=== PATIENT | female | born 1965 | race Caucasian/White ===

== ENCOUNTER 2016-09-29 20:58 | Inpatient (IN) | payer OTHER ==
[~2016-09-29] VITALS: Ht 157.5 cm; Wt 70.0 kg
[2016-09-29] MEDS ORDERED: ONDANSETRON 4 MG INJ IV STA (22:00)
[2016-09-29] MEDS ORDERED: SOD CHLORIDE 0.9% 1,000 ML IV STA (22:00)
[2016-09-29] MEDS ORDERED: morphine 4 MG/ML VIAL IV STA (22:00)
[2016-09-29 22:37] LABS: ADD UMIC YES; URINE BILIRUBIN (Dip) NEGATIVE (NEGATIVE); URINE BLOOD (Dip) TRACE (NEGATIVE); URINE GLUCOSE (Dip) NEGATIVE (NEGATIVE); URINE KETONES (Dip) NEGATIVE (NEGATIVE); URINE LEUKOCYTE ESTERASE (Dip) NEGATIVE (NEGATIVE); URINE NITRITE (Dip) NEGATIVE (NEGATIVE); URINE TOTAL PROTEIN (Dip) TRACE (NEGATIVE); URINE UROBILINOGEN (Dip) 0.2 E.U./dL (0.1-1.0)
[2016-09-29 22:39] LABS: BASOPHILS % 0.4 % (0.0-2.0); EOSINOPHILS # 0.1 10^3/ul (0.0-0.5); EOSINOPHILS % 1.5 % (0.0-7.0); HEMATOCRIT 38.5 % (37.0-47.0); HEMOGLOBIN 13.4 g/dl (12.0-16.0); MEAN CORPUSCULAR HEMOGLOBIN 30.4 pg (29.0-33.0); MEAN CORPUSCULAR HGB CONC 34.9 g/dl (32.0-37.0); MEAN CORPUSCULAR VOLUME 87.2 fl (82.0-101.0); MEAN PLATELET VOLUME 8.2 fl (7.4-10.4); MONOCYTE # 0.5 10^3/ul (0.3-0.9); MONOCYTES % 5.4 % (0.0-11.0); NEUTROPHIL # 7.7 10^3/ul (1.6-7.5); NEUTROPHILS % 81.7 % (39.0-77.0); PLATELET COUNT 206 10^3/UL (140-440); RED BLOOD COUNT 4.42 10^6/ul (4.20-5.40); RED CELL DISTRIBUTION WIDTH 12.2 % (11.5-14.5); UNCORRECTED WBC 9.4 10^3/ul (4.8-10.8); WHITE BLOOD COUNT 9.4 10^3/ul (4.8-10.8)
[2016-09-29 22:40] LABS: URINE COLOR YELLOW (YELLOW)
[2016-09-29 22:41] LABS: CONDITION 1
[2016-09-29 22:46] LABS: BACTERIA,URINE MODERATE; MUCUS,URINE MODERATE; SQUAMOUS EPITHELIAL CELL,UR MODERATE
[2016-09-29 22:46] LABS: ALBUMIN 4.5 g/dl (3.3-4.9)
[2016-09-29 22:47] LABS: POTASSIUM 4.2 mmol/L (3.5-5.1)
[2016-09-29 22:48] LABS: CREATININE 0.65 mg/dl (0.44-1.00)
[2016-09-29 22:49] LABS: ALBUMIN/GLOBULIN RATIO 1.25; BILIRUBIN,INDIRECT 0.7 mg/dl (0-1.1); BILIRUBIN,TOTAL 0.7 mg/dl (0.2-1.3); CALCIUM 9.6 mg/dl (8.4-10.2); TOTAL PROTEIN 8.1 g/dl (6.1-8.1)
--- NOTE | 2016-09-29 23:12 | RADRPT ---
PROCEDURE: CT Abdomen and Pelvis without contrast CLINICAL INDICATION: Abdominal pain TECHNIQUE: Transaxial images were obtained through the abdomen and pelvis on a multi-slice scanner without the intravenous contrast administration. no oral contrast had previously been given. Sagitt al and coronal re-formations were subsequently reconstructed. One or more of the following dose reduction techniques were used: - Automated exposure control. - Adjustment of the mA and/or kV according to patient size. - Use of iterative reconstruction technique. Radiation dose: CTDIvol = 9.65 mGy; DLP = 571.55 mGy-cm. COMPARISON: No prior studies are available for comparison. FINDINGS: Lung bases: Mild compressive changes seen at the gravity dependent posterior lung hernandez. Liver: Normal in size and in attenuation. There is no focal lesion. Gallbladder: Surgical flex are seen in the gallbladder fossa. Bile ducts: The common hepatic duct measures 1.5 cm in cross diameter. The common bile duct is dila dale to 0.8 cm through the head of the pancreas. No choledocholith is evident. Pancreas: Appears normal with no mass or inflammation evident. Spleen: Normal in size with no focal lesion. Adrenals: Normal with no mass identified. Kidneys, ureters and bladder: The kidneys are normal in size and there is no mass, pathological calc ification, or hydronephrosis evident. There is no perinephric stranding. The ureters are normal in c aliber and no ureteroliths are identified. The bladder is extrinsically compressed from a complex la rgely cystic mass which is seen at the midline pelvis. Reproductive organs: A complex largely cystic mass is seen at the midline pelvis located superior to the bladder which measures 9.3 x 9.1 x 8.7 cm in diameter. The cystic component measures 5 HU in d ensity. The wall is somewhat thickened and there are septations a solid component with a few puncta te calcifications and septations seen at the superior aspect of this lesion. No separate uterus is identified. Stomach and bowel: The stomach appears unremarkable. There is no evidence of bowel obstruction or i nflammation. Considerable stool is seen within the colon. Appendix: The vermiform appendix is prominent in caliber measuring approximately 7.5 mm but no infla mmatory changes seen in the adjacent fat. Peritoneum: No free intraperitoneal fluid or air is identified. Aorta: Normal in caliber with no aneurysmal dilatation. IVC: Unremarkable. Lymph nodes: No pathologically enlarged nodes are identified. Osseous structures: The osseous elements appear intact. IMPRESSION: 1. There is a complex largely cystic septated lesion seen at the midline pelvis located superior to the bladder measuring 9.3 x 9.1 x 8.7 cm. Superiorly there is a solid component with septations an d a few punctate calcifications noted. This is suspicious for ovarian neoplasm. No separate the ut erus is identified. Historical correlation is indicated. Correlation with sonography may be useful to further evaluate. 2. No adenopathy is identified. 3. There is no free intraperitoneal fluid or air. 4. No focal hepatic lesion is evident. 5. Status post cholecystectomy with dilatation of the common hepatic duct to 1.5 cm and less dilata tion of the common bile duct which measures 0.8 cm to the head of the pancreas. No choledocholith i s evident and the pancreas appears normal. Clinical and laboratory correlation is indicated to excl ude a biliary obstruction. 6. No evidence of bowel obstruction or inflammation. The vermiform appendix is prominent in calibe r measuring 7.5 mm, but no inflammatory changes seen of the adjacent fat. This is of doubtful signi ficance. Physician Juan Date Time Electronically viewed and signed by Physician Juan on 09/29/2016 23:11 /
[2016-09-29] MEDS ORDERED: HYDROmorphONE 1 MG/ML SYG IV STA (23:25)
[2016-09-30] MEDS ORDERED: ONDANSETRON 4 MG INJ IV STA ×2 (00:34→03:08)
--- NOTE | 2016-09-30 00:37 | RADRPT ---
PROCEDURE: Pelvic ultrasound. CLINICAL INDICATION: Pelvic pain TECHNIQUE: Hart scale, color doppler, spectral doppler ultrasound of the pelvis was performed with transabdominal transducers. COMPARISON: CT abdomen pelvis 09/29/2016 FINDINGS: Status post hysterectomy. Enlarged right ovary with solid and predominantly cystic components measuring up to 9.6 x 7.7 x 10.0 cm; blood flow is maintained. Left ovary is not identified. IMPRESSION: Complex cystic mass of the right ovary is concerning for epithelial neoplasm. Concordant with the o bservations of the prior CT scan Left ovary is not identified. RPTAT: PP .Vinny Reyes MD, MD Date Time Electronically viewed and signed by .Vinny Reyes MD, MD on 09/30/2016 00:36 .B/
[2016-09-30] MEDS ORDERED: METOCLOPRAMIDE 10 MG INJ IV ONE (01:00)
[2016-09-30] MEDS ORDERED: HYDROmorphONE 2 MG/ML SYG IV STA (01:09)
[2016-09-30] MEDS ORDERED: DICLOFENAC SODIUM 37.5 MG/ML VIAL IV STA (01:19)
--- NOTE | 2016-09-30 01:25 | CONS ---
Date/Time of Note Date/Time of Note DATE: 09/30/16 TIME: 00:48 Assessment/Plan Assessment/Plan Chief Complaint/Hosp Course LLQ pain Problems: Additional Assessment/Plan 50yo P3 with LLQ pain and N/V in the setting of a large complex R adnexal mass without e/o ovarian torsion at this time. Discussed with pt that given her age and the appearance of the mass, differential dx includes ovarian cancer vs a benign adnexal mass given CT scan does not show evidence of ascites, metastatic disease or alternative source of pathologic origin. Would recommend sending tumor markers- specifically CA-125 and CA-19-9. Pt may need consultation with Gynecologic Oncology pending results. Questions answered to patient's satisfaction at this stage. Consultation Date/Type/Reason Admit Date/Time Date of Consultation: Sep 30, 2016 Type of Consultation: Gynecology Reason for Consultation Pelvic pain with pelvic mass on imaging Referring Provider: PATRICIA ESCOBEDO DO Hx of Present Illness 50yo P3 with hx of total hysterectomy 2yrs ago presents with progressively worsening LLQ pain x1 week and intractable N/V x1d. Pt c/o 10/10 constant pain in LLQ which is worse with walking and moving about. Pt denies radiation or migration of the pain and denies having tried any medications for the pain. Able to tolerate POs yesterday w/o difficulty. Denies fevers/chills, N/V, urinary or bowel sxs. Denies vaginal bleeding or abnormal discharge. Pt states she last saw a Slabber >1yr ago for a pap smear which was wnl. Pt denies hx of abnormal pap smears. 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 Regular monthly menses until hysterectomy. Sexually active with male partner of 3yrs. FHx: Denies family history of cancer. Mother with DM SocHx: Denies tobacco, EtOH or illicit drug use Imaging in ED PROCEDURE: Pelvic ultrasound. CLINICAL INDICATION: Pelvic pain TECHNIQUE: Hart scale, color doppler, spectral doppler ultrasound of the pelvis was performed with transabdominal transducers. COMPARISON: CT abdomen pelvis 09/29/2016 FINDINGS: Status post hysterectomy. Enlarged right ovary with solid and predominantly cystic components measuring up to 9.6 x 7.7 x 10.0 cm; blood flow is maintained. Left ovary is not identified. IMPRESSION: Complex cystic mass of the right ovary is concerning for epithelial neoplasm. Concordant with the observations of the prior CT scan Left ovary is not identified. PROCEDURE: CT Abdomen and Pelvis without contrast CLINICAL INDICATION: Abdominal pain IMPRESSION: 1. There is a complex largely cystic septated lesion seen at the midline pelvis located superior to the bladder measuring 9.3 x 9.1 x 8.7 cm. Superiorly there is a solid component with septations and a few punctate calcifications noted. This is suspicious for ovarian neoplasm. No separate the uterus is identified. Historical correlation is indicated. Correlation with sonography may be useful to further evaluate. 2. No adenopathy is identified. 3. There is no free intraperitoneal fluid or air. 4. No focal hepatic lesion is evident. 5. Status post cholecystectomy with dilatation of the common hepatic duct to 1.5 cm and less dilatation of the common bile duct which measures 0.8 cm to the head of the pancreas. No choledocholith is evident and the pancreas appears normal. Clinical and laboratory correlation is indicated to exclude a biliary obstruction. 6. No evidence of bowel obstruction or inflammation. The vermiform appendix is prominent in caliber measuring 7.5 mm, but no inflammatory changes seen of the adjacent fat. This is of doubtful significance. Social History Smoking Status: Never smoker Exam/Review of Systems Vital Signs Vitals Vital Signs Date Time Temp Pulse Resp B/P Pulse Ox O2 Delivery O2 Flow Rate FiO2 09/29/16 21:01 97.8 90 20 129/90 100 Exam Gen: sitting up in bed, appears moderately distressed secondary to pain and nausea, emesis bag in hand Abd: thin, mod TTP LLQ and midline, no R/R/G, well-healed Pfannenstiel incision Pelvic: normal appearing external genitalia. On BME, cuff intact without defect or nodularity, no cervix palpated, palpable mobile mass in the midline which extends superiorly to 1 finger breadth below umbilicus and to the L pelvis with border midway between midline and ASIS. R border of mass is not well defined. Unable to appreciate the ovaries independent of the large mass Results Result Diagram: 09/29/16220809/29/162208 Results 24 hrs Laboratory Tests Test 09/29/16 22:00 09/29/16 22:09 Urine Bacteria MODERATE Urine Bilirubin NEGATIVE Urine Clarity SLIGHTLY CLOUDY Urine Color YELLOW Urine Glucose NEGATIVE Urine Hemoglobin TRACE Urine Ketones NEGATIVE Urine Leukocyte Esterase NEGATIVE Urine Microscopic RBC 2-5 Urine Microscopic WBC 0-2 Urine Mucus MODERATE Urine Nitrite NEGATIVE Urine Specific [place] >=1.030 H Urine Squamous Epithelial Cells MODERATE Urine Total Protein TRACE Urine Urobilinogen 0.2 E.U./dL Urine pH 5.5 Alanine Aminotransferase (ALT/SGPT) 74 H Albumin 4.5 Albumin/Globulin Ratio 1.25 Alkaline Phosphatase 79 Anion Gap 17 H Aspartate Amino Transf (AST/SGOT) 54 H Basophils # 0.0 Basophils % 0.4 Blood Urea Nitrogen 21 H Calcium Level 9.6 Carbon Dioxide Level 28 Chloride Level 102 Creatinine 0.65 Direct Bilirubin 0.00 Eosinophils # 0.1 Eosinophils % 1.5 Globulin 3.60 H Glucose Level 133 Hematocrit 38.5 Hemoglobin 13.4 Indirect Bilirubin 0.7 Lipase 72 Lymphocytes # 1.0 Lymphocytes % 11.0 L Mean Corpuscular Hemoglobin 30.4 Mean Corpuscular Hemoglobin Concent 34.9 Mean Corpuscular Volume 87.2 Mean Platelet Volume 8.2 Monocytes # 0.5 Monocytes % 5.4 Neutrophils # 7.7 H Neutrophils % 81.7 H Nucleated Red Blood Cells # 0.0 Nucleated Red Blood Cells % 0.0 Platelet Count 206 Potassium Level 4.2 Red Blood Count 4.42 Red Cell Distribution Width 12.2 Sodium Level 143 Total Bilirubin 0.7 Total Protein 8.1 White Blood Count 9.4 Medications Medications Current Medications Metoclopramide HCl (Reglan) 10 mg ONCE ONCE IV ; Start 09/30/16 at 01:00; Stop 09/30/16 at 01:01 JANINA GILLIS MD Sep 30, 2016 00:59
[2016-09-30] MEDS ORDERED: ONDANSETRON 4 MG INJ IV PRN (02:00)
[2016-09-30] MEDS ORDERED: ACETAMINOPHEN 325 MG TAB PO PRN ×2 (02:00→07:00)
--- NOTE | 2016-09-30 02:04 | ERA ---
ER Documentation Chief Complaint Date/Time DATE: 09/30/16 TIME: 01:58 Chief Complaint left sided abd pain x 2 days w/ vomiting HPI This 50-year-old female came in for 2 days of increasingly severe pain in her left pelvic area. She's also had nausea and vomiting. Is been vomiting several times since this morning. Pain is actually been accumulating for a while but was not as severe until 2 days ago. She denies fevers and chills. Denies chest pain. His had no diarrhea or constipation. ROS All systems reviewed and are negative except as per history of present illness. Medications Home Meds No Active Prescriptions or Reported Meds Allergies Allergies: Coded Allergies: No Known Allergy (Unverified , 09/29/16) PMhx/Soc Medical and Surgical Hx: pt denies Medical Hx History of Surgery: Yes ("GALLBLADDER, UTERUS REMOVAL; NECK SURGERY FOR PINCHED NERVE") Anesthesia Reaction: No Hx Neurological Disorder: No Hx Respiratory Disorders: No Hx Cardiac Disorders: No Hx Psychiatric Problems: No Hx Miscellaneous Medical Probl: No Hx Alcohol Use: No Hx Substance Use: No Hx Tobacco Use: No Smoking Status: Never smoker Physical Exam Vitals Vital Signs Date Time Temp Pulse Resp B/P Pulse Ox O2 Delivery O2 Flow Rate FiO2 09/30/16 01:57 89 16 139/76 95 Room Air 09/29/16 21:01 97.8 90 20 129/90 100 Physical Exam Const: [] Moderate distress Head: Atraumatic Eyes: Normal Conjunctiva, EOMI, PRL ENT: Normal External Ears, Nose and Mouth. Neck: Full range of motion..~ No meningismus. Resp: Clear to auscultation bilaterally Cardio: Regular rate and rhythm, no murmurs Abd: Soft, moderate tenderness to palpation in left lower quadrant, pelvic area, no guarding or rebound, palpable mass, non distended. Normal bowel sounds Skin: No petechiae or rashes Back: No midline or flank tenderness Ext: No cyanosis, or edema Neur: Awake and alert and oriented 3, no focal deficits Psych: Normal Mood and Affect Result Diagram: 09/29/16220809/29/162208 Results 24 hrs Laboratory Tests Test 09/29/16 22:00 09/29/16 22:09 Urine Bacteria MODERATE Urine Bilirubin NEGATIVE Urine Clarity SLIGHTLY CLOUDY Urine Color YELLOW Urine Glucose NEGATIVE% Urine Hemoglobin TRACE Urine Ketones NEGATIVE Urine Leukocyte Esterase NEGATIVE Urine Microscopic RBC 2-5/HPF Urine Microscopic WBC 0-2/HPF Urine Mucus MODERATE Urine Nitrite NEGATIVE Urine Specific [place] >=1.030 Urine Squamous Epithelial Cells MODERATE Urine Total Protein TRACE Urine Urobilinogen 0.2 E.U./dL Urine pH 5.5 Alanine Aminotransferase (ALT/SGPT) 74IU/L Albumin 4.5g/dl Albumin/Globulin Ratio 1.25 Alkaline Phosphatase 79IU/L Anion Gap 17 Aspartate Amino Transf (AST/SGOT) 54IU/L Basophils # 0.010^3/ul Basophils % 0.4% Blood Urea Nitrogen 21mg/dl Calcium Level 9.6mg/dl Carbon Dioxide Level 28mmol/L Chloride Level 102mmol/L Creatinine 0.65mg/dl Direct Bilirubin 0.00mg/dl Eosinophils # 0.110^3/ul Eosinophils % 1.5% Globulin 3.60g/dl Glucose Level 133mg/dl Hematocrit 38.5% Hemoglobin 13.4g/dl Indirect Bilirubin 0.7mg/dl Lipase 72U/L Lymphocytes # 1.010^3/ul Lymphocytes % 11.0% Mean Corpuscular Hemoglobin 30.4pg Mean Corpuscular Hemoglobin Concent 34.9g/dl Mean Corpuscular Volume 87.2fl Mean Platelet Volume 8.2fl Monocytes # 0.510^3/ul Monocytes % 5.4% Neutrophils # 7.710^3/ul Neutrophils % 81.7% Nucleated Red Blood Cells # 0.010^3/ul Nucleated Red Blood Cells % 0.0/100WBC Platelet Count 80762^3/UL Potassium Level 4.2mmol/L Red Blood Count 4.4210^6/ul Red Cell Distribution Width 12.2% Sodium Level 143mmol/L Total Bilirubin 0.7mg/dl Total Protein 8.1g/dl White Blood Count 9.410^3/ul Current Medications Medications (Trade) Dose Ordered Sig/Elisa Route PRN Reason Start Time Stop Time Status Last Admin Dose Admin Sodium Chloride (NS) 1,000 ml @ 1,000 mls/hr Q1H STAT IV 09/29/16 22:00 09/29/16 22:59 DC 09/29/16 22:13 Morphine Sulfate (morphine) 4 mg ONCE STAT IV 09/29/16 22:00 09/29/16 22:01 DC 09/29/16 22:13 Ondansetron HCl (Zofran Inj) 4 mg ONCE STAT IV 09/29/16 22:00 09/29/16 22:01 DC 09/29/16 22:13 Hydromorphone HCl (Dilaudid) 1 mg ONCE STAT IV 09/29/16 23:25 09/29/16 23:27 DC 09/29/16 23:44 Metoclopramide HCl (Reglan) 10 mg ONCE ONCE IV 09/30/16 01:00 09/30/16 01:01 DC 09/30/16 00:54 Ondansetron HCl (Zofran Inj) 4 mg ONCE STAT IV 09/30/16 00:34 09/30/16 00:36 DC 09/30/16 00:54 Hydromorphone HCl (Dilaudid) 2 mg ONCE STAT IV 09/30/16 01:09 09/30/16 01:10 DC 09/30/16 01:31 Diclofenac Sodium (Dyloject) 37.5 mg ONCE STAT IV 09/30/16 01:19 09/30/16 01:20 DC 09/30/16 01:31 Ondansetron HCl (Zofran Inj) 4 mg BRIDGE ORDER PRN IV NAUSEA AND/OR VOMITING 09/30/16 02:00 10/01/16 01:59 Acetaminophen (Tylenol Tab) 650 mg ER BRIDGE PRN PO MILD PAIN/FEVER 09/30/16 02:00 10/01/16 01:59 Procedures/MDM 50-year-old female with new diagnosis of left ovarian mass likely neoplastic. She has intractable pain from this. She was initially given a liter of fluid Zofran and 4 mild grams of morphine. This barely touched her pain she was then will given 1 mg of Dilaudid which helped her pain but was very quickly she was then given 2 mg of Dilaudid and IV diclofenac. She vomited several times including will she was being examined by Dr. Clifton, clinical transformation specialist forestry extension specialist who came to the room to see the patient. She was then given Reglan and Zofran. She' s being admitted to the medical surgical floor for intractable nausea vomiting. I spoke with Dr. Ayala he'll be admitting the patient. Dr. Clifton will be on consult. She has ordered cancer tumor markers see a 19 9 and CVA [address] abdomen and pelvis interpretation: Complex cystic/solid mass measuring approximately 10 x 10 x 10 cm. No free fluid, 1.5 cm hepatic duct and common bile duct which is 8 mm. No free air, no obstruction Pelvic ultrasound interpretation: Complex cystic structure in the left pelvic area consistent with possible ovarian neoplasm, left ovarian is not visualized Departure Diagnosis: Primary Impression: Intractable abdominal pain Additional Impressions: Ovarian mass, left Vomiting Dehydration Condition: Stable PATRICIA ESCOBEDO DO Sep 30, 2016 02:04
[2016-09-30 02:55] LABS: CANCER ANTIGEN 19-9 5.7 U/ml (0.0-37.0)
[2016-09-30] MEDS ORDERED: LORAZEPAM 2 MG INJ IV ONE (03:30)
[2016-09-30 04:07] VITALS: TEMP 97.8
[2016-09-30 04:49] VITALS: BP 139/76; PULSE 86; RESP 18
[2016-09-30 04:54] VITALS: Ht 157.5 cm; Wt 70.0 kg
[2016-09-30 08:00] VITALS: BP 138/70; PULSE 88; RESP 18
[2016-09-30 08:11] VITALS: BP 121/69; RESP 17
[2016-09-30] MEDS: D5W-0.45 NACL + KCL 20 MEQ 1,000 ML IV SCH ×2 (09:47→21:23)
[2016-09-30] MEDS: HYDROCODONE/APAP (5/325) TAB PO PRN (09:48)
--- NOTE | 2016-09-30 12:00 | HP ---
DATE OF ADMISSION: 09/30/2016 CHIEF COMPLAINT: Abdominal pain. REASON FOR ADMISSION: Ovarian mass, benign versus malignant. HISTORY OF PRESENT ILLNESS: This is a 50-year-old female who has a past medical history of uterine fibroids and history of section, history of gallstones, status post cholecystectomy, presen dale with a progressively worsening of left lower quadrant pain for the last 1 week and associated wi th intractable nausea and vomiting for the last one day. She was complaining of 10/10 pain. In the emergency room, she had a workup done including a CT abdomen and pelvis, and a pelvic ultrasound wh ich was suspicious for ovarian mass, possible benign versus malignant. She was evaluated by IT ASSOCIATE onc ology, Dr. Clifton, and the patient was recommended to have tumor markers, including CA-125 and CA 19-9. Further evaluation will depend on the patient's further lab results. At the time of my evaluation, she was complaining the left lower quadrant pain associated with some nausea, vomiting. REVIEW OF SYSTEMS: Other 12 point review of systems has been obtained and is negative except what i s mentioned. PAST MEDICAL HISTORY: Notable for uterine fibroids, gallstones. PAST SURGICAL HISTORY: History of cholecystectomy, history of hysterectomy at the age of 48 for sym ptomatic fibroids. FAMILY HISTORY: No family history of ovarian cancers. SOCIAL HISTORY: No smoking, alcohol or recreational drug use. PHYSICAL EXAMINATION: VITAL SIGNS: Temperature 98.5, heart rate 89, respirations 17, blood pressure 121/69, saturation 97 % on room air. GENERAL: Awake, alert, in moderate distress due to pain. HEENT: Normal. Oropharynx clear. NECK: Supple, no JVD, no lymphadenopathy. LUNGS: Clear to auscultation. No crackles, no wheezes. HEART: S1, S2, with regular rhythm, no murmur. ABDOMEN: Soft, nontender to palpation in the left lower quadrant, also minimal tenderness on the ri ght lower quadrant on deep palpation. EXTREMITIES: No clubbing, cyanosis, or edema. NEUROLOGICAL: Nonfocal, intact. PSYCHIATRIC: Appropriate affect and mood. LABORATORY DATA/DIAGNOSTIC IMAGING: Sodium 143, potassium 4.2, chloride 102, bicarbonate 28, BUN 21 , creatinine 0.6, glucose 133, calcium 9.6. LFTs are normal. Albumin 4.5. Urinalysis is normal. WBC 9.4, hemoglobin 13.4, platelet count is 206. IMPRESSION: This is a 50-year-old female with: 1. 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 2. Intractable pain secondary to ovarian mass. 3. History of uterine fibroids, status post hysterectomy at the age 48 for symptomatic fibroids. 4. History of cholecystectomy. PLAN: 1. Admission to the med/surg floor. The patient has been evaluated by IT ASSOCIATE, Dr. Clifton, and recom mended to have tumor markers CA-125 and CA19-9. 2. IV fluids, D5 half NS with KCl 20 mEq to run at 70 mL per hour. 3. Pain control with Tylenol, Amelia and Dilaudid. 4. Protonix for GI prophylaxis. 5. Zofran p.r.n. nausea, vomiting. Patient is currently seen in the med/surg floor and she will be followed up along with her course and the IT ASSOCIATE recommendations depending on the tumor marker results . Dictated By: BARBARA ALBARRAN MD, KP/HARSHAL Conf#: [id number] DID#: [id number]
[2016-09-30] MEDS: METOCLOPRAMIDE 10 MG INJ IV SCH ×3 (13:28→23:13)
[2016-09-30] MEDS: ONDANSETRON 4 MG INJ IV PRN (16:04)
[2016-09-30 19:18] VITALS: BP 125/59; RESP 18
[2016-10-01] MEDS: HYDROmorphONE 2 MG/ML SYG IV PRN ×4 (01:52→17:36)
[2016-10-01 05:52] LABS: EOSINOPHILS % 0.4 % (0.0-7.0); HEMATOCRIT 29.6 % (37.0-47.0); HEMOGLOBIN 10.3 g/dl (12.0-16.0); LYMPHOCYTES # 0.9 10^3/ul (0.8-2.9); LYMPHOCYTES % 10.1 % (15.0-51.0); MEAN CORPUSCULAR HEMOGLOBIN 30.9 pg (29.0-33.0); MEAN CORPUSCULAR HGB CONC 34.9 g/dl (32.0-37.0); MEAN CORPUSCULAR VOLUME 88.5 fl (82.0-101.0); MEAN PLATELET VOLUME 8.1 fl (7.4-10.4); MONOCYTE # 0.9 10^3/ul (0.3-0.9); MONOCYTES % 10.3 % (0.0-11.0); NEUTROPHIL # 7.1 10^3/ul (1.6-7.5); NEUTROPHILS % 79.2 % (39.0-77.0); PLATELET COUNT 176 10^3/UL (140-440); RED BLOOD COUNT 3.34 10^6/ul (4.20-5.40); UNCORRECTED WBC 8.9 10^3/ul (4.8-10.8); WHITE BLOOD COUNT 8.9 10^3/ul (4.8-10.8)
[2016-10-01 05:54] LABS: ALBUMIN 3.5 g/dl (3.3-4.9); POTASSIUM 4.1 mmol/L (3.5-5.1)
[2016-10-01 05:56] LABS: BILIRUBIN,INDIRECT 1.1 mg/dl (0-1.1); BILIRUBIN,TOTAL 1.1 mg/dl (0.2-1.3); CREATININE 0.64 mg/dl (0.44-1.00)
[2016-10-01 05:57] LABS: ALBUMIN/GLOBULIN RATIO 1.2; CALCIUM 8.2 mg/dl (8.4-10.2); TOTAL PROTEIN 6.4 g/dl (6.1-8.1)
[2016-10-01] MEDS: METOCLOPRAMIDE 10 MG INJ IV SCH ×4 (05:58→22:35)
[2016-10-01 06:10] LABS: CONDITION 1
[2016-10-01 07:46] VITALS: BP 111/62; RESP 18
[2016-10-01] MEDS: ONDANSETRON 4 MG INJ IV PRN (10:57)
--- NOTE | 2016-10-01 11:02 | QN ---
Documentation Comment Patient was evaluated by Dr. Clifton, Laborist and was consulted . Please refer to the note. CT and ultrasound reviewed. tumor markers are reviewed and is normal range. how ever due to the nature of ultrasound and CT findings, risk for still ovarian neoplasm ( Borderline or malignant ) can not be excluded. CA 125 has less specificity for malignant ovarian cancers than OVA 1. This lab is not being performed at [facility]. Recommendation to consult, Cotton Buyer oncologist. Surgery should be done with presence of ROLL OFF DRIVER onc due to still possibility of ovarian neoplasm and necessity for need for more advanced procedure including LILI, BSO, and tumor debulking. needs intra op Frozen section. Please consult, DR Hdz or Dr. pratt. Please contact general ROLL OFF DRIVER for any additional questions. KAY HELMS MD Oct 01, 2016 11:02
[2016-10-01] MEDS: D5W-0.45 NACL + KCL 20 MEQ 1,000 ML IV SCH ×2 (11:59→22:36)
--- NOTE | 2016-10-01 12:08 | PN ---
Date/Time of Note Date/Time of Note DATE: 10/01/16 TIME: 12:03 Assessment/Plan VTE Prophylaxis VTE Prophylaxis Intervention: SCD's Lines/Catheters IV Catheter Type (from Nrs): Peripheral IV Assessment/Plan Assessment/Plan 1. 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 2. Intractable pain secondary to ovarian mass. 3. History of uterine fibroids, status post hysterectomy at the age 48 for symptomatic fibroids. 4. History of cholecystectomy. 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 HEENT: Normal. Oropharynx clear. NECK: Supple, no JVD, no lymphadenopathy. LUNGS: Clear to auscultation. No crackles, no wheezes. HEART: S1, S2, with regular rhythm, no murmur. ABDOMEN: Soft, nontender to palpation in the left lower quadrant, also minimal tenderness on the right lower quadrant on deep palpation. EXTREMITIES: No clubbing, cyanosis, or edema. NEUROLOGICAL: Nonfocal, intact. PSYCHIATRIC: Appropriate affect and mood. Results Result Diagram: 10/01/16 0426 10/01/16 0426 Results 24 hrs Laboratory Tests Test 10/01/16 04:26 Activated Partial Thromboplast Time 27.1 Alanine Aminotransferase (ALT/SGPT) 67 Albumin 3.5 # Albumin/Globulin Ratio 1.20 Alkaline Phosphatase 74 Anion Gap 13 Aspartate Amino Transf (AST/SGOT) 47 H Basophils # 0.0 Basophils % 0.0 Blood Urea Nitrogen 14 Calcium Level 8.2 L Carbon Dioxide Level 30 Chloride Level 103 Creatinine 0.64 Direct Bilirubin 0.00 Eosinophils # 0.0 Eosinophils % 0.4 Globulin 2.90 Glucose Level 139 Hematocrit 29.6 #L Hemoglobin 10.3 #L Indirect Bilirubin 1.1 Lymphocytes # 0.9 Lymphocytes % 10.1 L Mean Corpuscular Hemoglobin 30.9 Mean Corpuscular Hemoglobin Concent 34.9 Mean Corpuscular Volume 88.5 Mean Platelet Volume 8.1 Monocytes # 0.9 Monocytes % 10.3 Neutrophils # 7.1 Neutrophils % 79.2 H Nucleated Red Blood Cells # 0.0 Nucleated Red Blood Cells % 0.0 Platelet Count 176 Potassium Level 4.1 Red Blood Count 3.34 #L Red Cell Distribution Width 12.0 Sodium Level 142 Total Bilirubin 1.1 Total Protein 6.4 # White Blood Count 8.9 Medications Medications Current Medications Potassium Chloride/Dextrose/ Sod Cl (D5-1/2ns + KCl 20 Meq) 1,000 ml @ 70 mls/ hr [id number] IV Last administered on 09/30/16 21:23; Admin Dose 70 MLS/HR; Start 09/30/16 at 07:00 Metoclopramide HCl (Reglan) 10 mg Q6 IV Last administered on 10/01/16 05:58; Admin Dose 10 MG; Start 09/30/16 at 12:00 Ondansetron HCl (Zofran Inj) 4 mg Q4H PRN IV NAUSEA AND/OR VOMITING Last administered on 10/01/16 10:57; Admin Dose 4 MG; Start 09/30/16 at 07:00 Hydromorphone HCl (Dilaudid) 2 mg Q3H PRN IV PAIN Last administered on 07:53; Admin Dose 2 MG; Start 09/30/16 at 07:00 Acetaminophen/ Hydrocodone Bitart ([place] (5/325)) 1 tab Q4H PRN PO pain Last administered on 09/30/16 09:48; Admin Dose 1 TAB; Start 09/30/16 at 07:00 Acetaminophen (Tylenol Tab) 650 mg Q4H PRN PO PAIN AND OR ELEVATED TEMP; Start 09/30/16 at 07:00 BARBARA ALBARRAN MD Oct 01, 2016 12:08
[2016-10-01] MEDS: HYDROCODONE/APAP (5/325) TAB PO PRN (22:35)
[2016-10-02] MEDS: HYDROmorphONE 2 MG/ML SYG IV PRN ×2 (01:08→22:27)
[2016-10-02] MEDS: ONDANSETRON 4 MG INJ IV PRN ×4 (01:08→22:27)
[2016-10-02 05:20] LABS: INR 1.14; PARTIAL THROMBOPLASTIN TIME 27.9 Sec (25.0-35.0); PROTIME 14.6 Sec (12.2-14.2); PT RATIO 1.1
[2016-10-02 05:23] LABS: BASOPHILS % 0.3 % (0.0-2.0); EOSINOPHILS # 0.1 10^3/ul (0.0-0.5); EOSINOPHILS % 0.8 % (0.0-7.0); HEMATOCRIT 27.1 % (37.0-47.0); HEMOGLOBIN 9.3 g/dl (12.0-16.0); LYMPHOCYTES % 11.9 % (15.0-51.0); MEAN CORPUSCULAR HEMOGLOBIN 30.6 pg (29.0-33.0); MEAN CORPUSCULAR HGB CONC 34.5 g/dl (32.0-37.0); MEAN CORPUSCULAR VOLUME 88.8 fl (82.0-101.0); MEAN PLATELET VOLUME 7.9 fl (7.4-10.4); MONOCYTE # 1.2 10^3/ul (0.3-0.9); MONOCYTES % 13.5 % (0.0-11.0); NEUTROPHIL # 6.5 10^3/ul (1.6-7.5); NEUTROPHILS % 73.5 % (39.0-77.0); PLATELET COUNT 171 10^3/UL (140-440); RED BLOOD COUNT 3.05 10^6/ul (4.20-5.40); UNCORRECTED WBC 8.8 10^3/ul (4.8-10.8); WHITE BLOOD COUNT 8.8 10^3/ul (4.8-10.8)
[2016-10-02] MEDS: METOCLOPRAMIDE 10 MG INJ IV SCH ×4 (05:26→22:27)
[2016-10-02 05:27] LABS: ALBUMIN 3.4 g/dl (3.3-4.9); POTASSIUM 4.2 mmol/L (3.5-5.1)
[2016-10-02 05:29] LABS: CREATININE 0.57 mg/dl (0.44-1.00)
[2016-10-02 05:30] LABS: ALBUMIN/GLOBULIN RATIO 1.13; TOTAL PROTEIN 6.4 g/dl (6.1-8.1)
[2016-10-02] MEDS: HYDROCODONE/APAP (5/325) TAB PO PRN ×4 (05:30→18:43)
[2016-10-02 05:41] LABS: CONDITION 1
[2016-10-02 08:23] VITALS: BP 120/58; RESP 18
[2016-10-02] MEDS: D5W-0.45 NACL + KCL 20 MEQ 1,000 ML IV SCH (14:55)
--- NOTE | 2016-10-02 15:17 | PN ---
Date/Time of Note Date/Time of Note DATE: 10/02/16 TIME: 15:15 Assessment/Plan VTE Prophylaxis VTE Prophylaxis Intervention: other Lines/Catheters IV Catheter Type (from Nrsg): Peripheral IV Assessment/Plan Chief Complaint/Hosp Course 1. 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 2. Intractable pain secondary to ovarian mass.paIN BETTER 3. History of uterine fibroids, status post hysterectomy at the age 48 for symptomatic fibroids. 4. History of cholecystectomy. PLAN D/W DR Aleksandr NINA HE WANT OB TO TALK TO HIM DIRECTELY D/W OB Problems: Subjective 24 Hr Interval Summary Cardiovascular: no complaints Genitourinary: other (abd pain better) Exam/Review of Systems Vital Signs Vitals Vital Signs Date Time Temp Pulse Resp B/P Pulse Ox O2 Delivery O2 Flow Rate FiO2 10/02/16 08:23 98.2 78 18 120/58 95 09/30/16 08:00 Room Air Intake and Output 10/01/16 10/01/16 10/02/16 15:00 23:00 07:00 Intake Total 1290 ml 1440 ml Output Total 5 ml Balance 1290 ml 1435 ml Exam Neck: supple Respiratory: clear to auscultation Cardiovascular: regular rate and rhythm Gastrointestinal: bowel sounds (+), soft Results Result Diagram: 10/02/1642210/02/16 042 Results 24 hrs Laboratory Tests Test 10/02/16 04:23 Activated Partial Thromboplast Time 27.9 Alanine Aminotransferase (ALT/SGPT) 63 Albumin 3.4 Albumin/Globulin Ratio 1.13 Alkaline Phosphatase 76 Anion Gap 16 Aspartate Amino Transf (AST/SGOT) 40 Basophils # 0.0 Basophils % 0.3 Blood Urea Nitrogen 12 Calcium Level 8.0 L Carbon Dioxide Level 28 Chloride Level 101 Creatinine 0.57 Direct Bilirubin 0.00 Eosinophils # 0.1 Eosinophils % 0.8 Globulin 3.00 Glucose Level 127 Hematocrit 27.1 L Hemoglobin 9.3 L INR International Normalized Ratio 1.14 Indirect Bilirubin 1.0 Lymphocytes # 1.0 Lymphocytes % 11.9 L Mean Corpuscular Hemoglobin 30.6 Mean Corpuscular Hemoglobin Concent 34.5 Mean Corpuscular Volume 88.8 Mean Platelet Volume 7.9 Monocytes # 1.2 H Monocytes % 13.5 H Neutrophils # 6.5 Neutrophils % 73.5 Nucleated Red Blood Cells # 0.0 Nucleated Red Blood Cells % 0.0 Platelet Count 171 Potassium Level 4.2 Prothrombin Time 14.6 H Prothrombin Time Ratio 1.1 Red Blood Count 3.05 L Red Cell Distribution Width 12.0 Sodium Level 141 Total Bilirubin 1.0 Total Protein 6.4 White Blood Count 8.8 Medications Medications Current Medications Potassium Chloride/Dextrose/ Sod Cl (D5-1/2ns + KCl 20 Meq) 1,000 ml @ 70 mls/ hr [id number] IV Last administered on 10/02/16 14:55; Admin Dose 70 MLS/HR; Start 09/30/16 at 07:00 Metoclopramide HCl (Reglan) 10 mg Q6 IV Last administered on 10/02/16 11:05; Admin Dose 10 MG; Start 09/30/16 at 12:00 Ondansetron HCl (Zofran Inj) 4 mg Q4H PRN IV NAUSEA AND/OR VOMITING Last administered on 10/02/16 14:55; Admin Dose 4 MG; Start 09/30/16 at 07:00 Hydromorphone HCl (Dilaudid) 2 mg Q3H PRN IV PAIN Last administered on 01:08; Admin Dose 2 MG; Start 09/30/16 at 07:00 Acetaminophen/ Hydrocodone Bitart ([place] (5/325)) 1 tab Q4H PRN PO pain Last administered on 10/02/16 14:51; Admin Dose 1 TAB; Start 09/30/16 at 07:00 Acetaminophen (Tylenol Tab) 650 mg Q4H PRN PO PAIN AND OR ELEVATED TEMP; Start 09/30/16 at 07:00 EVELYN GARCIA MD Oct 02, 2016 15:17
--- NOTE | 2016-10-02 18:12 | CONS ---
Date/Time of Note Date/Time of Note DATE: 10/02/16 TIME: 18:08 Assessment/Plan Assessment/Plan Additional Assessment/Plan 10 cm ovarian mass suspicious for ovarian CA Pt co of persistent abd pain and Nausea- pt not stable to DC home DR wills called and will consult in am Consultation Date/Type/Reason Admit Date/Time Sep 30, 2016 at 01:37 Initial Consult Date 09/30/16 Type of Consultation: Gynecology Reason for Consultation ovarian mass Referring Provider: PATRICIA ESCOBEDO DO Exam/Review of Systems Vital Signs Vitals Vital Signs Date Time Temp Pulse Resp B/P Pulse Ox O2 Delivery O2 Flow Rate FiO2 10/02/16 08:23 98.2 78 18 120/58 95 09/30/16 08:00 Room Air Intake and Output 10/01/16 10/01/16 10/02/16 15:00 23:00 07:00 Intake Total 1290 ml 1440 ml Output Total 5 ml Balance 1290 ml 1435 ml Results Result Diagram: 10/02/16 0423 10/02/16 0423 Results 24 hrs Laboratory Tests Test 10/02/16 04:23 Activated Partial Thromboplast Time 27.9 Alanine Aminotransferase (ALT/SGPT) 63 Albumin 3.4 Albumin/Globulin Ratio 1.13 Alkaline Phosphatase 76 Anion Gap 16 Aspartate Amino Transf (AST/SGOT) 40 Basophils # 0.0 Basophils % 0.3 Blood Urea Nitrogen 12 Calcium Level 8.0 L Carbon Dioxide Level 28 Chloride Level 101 Creatinine 0.57 Direct Bilirubin 0.00 Eosinophils # 0.1 Eosinophils % 0.8 Globulin 3.00 Glucose Level 127 Hematocrit 27.1 L Hemoglobin 9.3 L INR International Normalized Ratio 1.14 Indirect Bilirubin 1.0 Lymphocytes # 1.0 Lymphocytes % 11.9 L Mean Corpuscular Hemoglobin 30.6 Mean Corpuscular Hemoglobin Concent 34.5 Mean Corpuscular Volume 88.8 Mean Platelet Volume 7.9 Monocytes # 1.2 H Monocytes % 13.5 H Neutrophils # 6.5 Neutrophils % 73.5 Nucleated Red Blood Cells # 0.0 Nucleated Red Blood Cells % 0.0 Platelet Count 171 Potassium Level 4.2 Prothrombin Time 14.6 H Prothrombin Time Ratio 1.1 Red Blood Count 3.05 L Red Cell Distribution Width 12.0 Sodium Level 141 Total Bilirubin 1.0 Total Protein 6.4 White Blood Count 8.8 Medications Medications Current Medications Potassium Chloride/Dextrose/ Sod Cl (D5-1/2ns + KCl 20 Meq) 1,000 ml @ 70 mls/ hr [id number] IV Last administered on 10/02/16 14:55; Admin Dose 70 MLS/HR; Start 09/30/16 at 07:00 Metoclopramide HCl (Reglan) 10 mg Q6 IV Last administered on 10/02/16 11:05; Admin Dose 10 MG; Start 09/30/16 at 12:00 Ondansetron HCl (Zofran Inj) 4 mg Q4H PRN IV NAUSEA AND/OR VOMITING Last administered on 10/02/16 14:55; Admin Dose 4 MG; Start 09/30/16 at 07:00 Hydromorphone HCl (Dilaudid) 2 mg Q3H PRN IV PAIN Last administered on 01:08; Admin Dose 2 MG; Start 09/30/16 at 07:00 Acetaminophen/ Hydrocodone Bitart ([place] (5/325)) 1 tab Q4H PRN PO pain Last administered on 10/02/16 14:51; Admin Dose 1 TAB; Start 09/30/16 at 07:00 Acetaminophen (Tylenol Tab) 650 mg Q4H PRN PO PAIN AND OR ELEVATED TEMP; Start 09/30/16 at 07:00 BERTA MERCADO MD Oct 02, 2016 18:12
[2016-10-02 20:05] VITALS: BP 120/60; RESP 18
--- NOTE | 2016-10-02 21:34 | CONS ---
Date/Time of Note Date/Time of Note DATE: 10/02/16 TIME: 21:30 Consultation Date/Type/Reason Admit Date/Time Sep 30, 2016 at 01:37 Hx of Present Illness 50 year old female asked to see regarding painful adnexal mass in hospital multiple days. Chart reviewed in detail and will see a.m. as confirmed to be OK by requesting physician. Of note CA-125 normal but if had pain and H/H reducing of concern; will further evaluate with physical exam and evaluate options. Thank you. Cardiovascular: no complaints Genitourinary: other (abd pain better) Social History Smoking Status: Never smoker Exam/Review of Systems Vital Signs Vitals Vital Signs Date Time Temp Pulse Resp B/P Pulse Ox O2 Delivery O2 Flow Rate FiO2 10/02/16 20:05 99.3 84 18 120/60 96 09/30/16 08:00 Room Air Intake and Output 10/01/16 10/01/16 10/02/16 15:00 23:00 07:00 Intake Total 1290 ml 1440 ml Output Total 5 ml Balance 1290 ml 1435 ml Results Result Diagram: 10/02/16 0423 10/02/16 0423 Results 24 hrs Laboratory Tests Test 10/02/16 04:23 Activated Partial Thromboplast Time 27.9 Alanine Aminotransferase (ALT/SGPT) 63 Albumin 3.4 Albumin/Globulin Ratio 1.13 Alkaline Phosphatase 76 Anion Gap 16 Aspartate Amino Transf (AST/SGOT) 40 Basophils # 0.0 Basophils % 0.3 Blood Urea Nitrogen 12 Calcium Level 8.0 L Carbon Dioxide Level 28 Chloride Level 101 Creatinine 0.57 Direct Bilirubin 0.00 Eosinophils # 0.1 Eosinophils % 0.8 Globulin 3.00 Glucose Level 127 Hematocrit 27.1 L Hemoglobin 9.3 L INR International Normalized Ratio 1.14 Indirect Bilirubin 1.0 Lymphocytes # 1.0 Lymphocytes % 11.9 L Mean Corpuscular Hemoglobin 30.6 Mean Corpuscular Hemoglobin Concent 34.5 Mean Corpuscular Volume 88.8 Mean Platelet Volume 7.9 Monocytes # 1.2 H Monocytes % 13.5 H Neutrophils # 6.5 Neutrophils % 73.5 Nucleated Red Blood Cells # 0.0 Nucleated Red Blood Cells % 0.0 Platelet Count 171 Potassium Level 4.2 Prothrombin Time 14.6 H Prothrombin Time Ratio 1.1 Red Blood Count 3.05 L Red Cell Distribution Width 12.0 Sodium Level 141 Total Bilirubin 1.0 Total Protein 6.4 White Blood Count 8.8 Medications Medications Current Medications Potassium Chloride/Dextrose/ Sod Cl (D5-1/2ns + KCl 20 Meq) 1,000 ml @ 70 mls/ hr [id number] IV Last administered on 10/02/16 14:55; Admin Dose 70 MLS/HR; Start 09/30/16 at 07:00 Metoclopramide HCl (Reglan) 10 mg Q6 IV Last administered on 10/02/16 18:42; Admin Dose 10 MG; Start 09/30/16 at 12:00 Ondansetron HCl (Zofran Inj) 4 mg Q4H PRN IV NAUSEA AND/OR VOMITING Last administered on 10/02/16 14:55; Admin Dose 4 MG; Start 09/30/16 at 07:00 Hydromorphone HCl (Dilaudid) 2 mg Q3H PRN IV PAIN Last administered on 01:08; Admin Dose 2 MG; Start 09/30/16 at 07:00 Acetaminophen/ Hydrocodone Bitart ([place] (5/325)) 1 tab Q4H PRN PO pain Last administered on 10/02/16 18:43; Admin Dose 1 TAB; Start 09/30/16 at 07:00 Acetaminophen (Tylenol Tab) 650 mg Q4H PRN PO PAIN AND OR ELEVATED TEMP; Start 09/30/16 at 07:00 Magnesium Citrate (Citroma) 300 ml ONCE ONCE PO ; Start 10/03/16 at 08:00; Stop 10/03/16 at 08:01 KATIE MEJIA MD Oct 02, 2016 21:34
--- NOTE | 2016-10-02 23:35 | CONS ---
DATE OF ADMISSION: 09/30/2016 DATE OF CONSULTATION: HISTORY OF PRESENT ILLNESS: This is a 50-year-old female, para 3, who presented to the emergency room on 09/30/2016 for abdominal pelvic pain. She has undergone ultrasound and CT scan of abdomen and pelvis. CT scan showed a complex cystic mass about 9.3 x 9.1 x 8.7 cm. There is no free fluid and no adenopathy. Pelvic ultrasound confirms. Her tumor markers were drawn and a CA- 125 was normal. The patient was seen by laborist since Sunday and, now it was determined that due to the patient's age and size of the mass, RESOURCE COORDINATOR oncology consultation was obtained. The patient has been afebrile. White count is normal; however, hemoglobin is decreasing. PAST MEDICAL HISTORY: Unremarkable. PAST SURGICAL HISTORY: Significant for a vaginal hysterectomy about a year and half ago for fibroids. The patient has also section. She also has had back surgery and also laparoscopic cholecystectomy. FAMILY HISTORY: No history of malignancy. SOCIAL HISTORY: The patient does not smoke. LABORATORY STUDIES: Her white count is 8.8, hemoglobin 9.3, platelets at 171, CA 19-9 is 5.7, CA-125 is 11. Ultrasound performed on 09/29/2016 shows the right ovary enlarged at 10 x 10 x 8 cm. The blood flow was maintained on the right ovary. Left ovary is not identified. IMPRESSION: 1. Abdominal pelvic pain. 2. A 10 cm pelvic mass. RECOMMENDATIONS: 1. The patient will need surgical removal of the pelvic mass, either laparoscopically or open procedure. 2. I recommend bowel prep in the morning. 3. Will schedule her for surgical treatment within the next 24 to 48 hours. 4. I have discussed my plan with Dr. Jones and Dr. Gutierrez. Dictated By: PRISCILLA ROBBINS/HARSHAL Conf#: [id number] DID#: [id number] CC: BARBARA ALBARRAN MD;*EndCC* MTDD
[2016-10-03] MEDS: METOCLOPRAMIDE 10 MG INJ IV SCH ×4 (04:55→23:27)
[2016-10-03] MEDS: HYDROmorphONE 2 MG/ML SYG IV PRN ×4 (04:55→20:42)
[2016-10-03] MEDS: D5W-0.45 NACL + KCL 20 MEQ 1,000 ML IV SCH ×3 (04:55→20:42)
[2016-10-03 05:44] LABS: BASOPHILS % 0.3 % (0.0-2.0); EOSINOPHILS # 0.1 10^3/ul (0.0-0.5); HEMATOCRIT 26.7 % (37.0-47.0); HEMOGLOBIN 9.3 g/dl (12.0-16.0); LYMPHOCYTES # 0.8 10^3/ul (0.8-2.9); LYMPHOCYTES % 10.8 % (15.0-51.0); MEAN CORPUSCULAR HEMOGLOBIN 30.5 pg (29.0-33.0); MEAN CORPUSCULAR HGB CONC 34.8 g/dl (32.0-37.0); MEAN CORPUSCULAR VOLUME 87.6 fl (82.0-101.0); MEAN PLATELET VOLUME 8.1 fl (7.4-10.4); MONOCYTE # 1.1 10^3/ul (0.3-0.9); MONOCYTES % 15.8 % (0.0-11.0); NEUTROPHIL # 5.1 10^3/ul (1.6-7.5); NEUTROPHILS % 71.1 % (39.0-77.0); PLATELET COUNT 181 10^3/UL (140-440); RED BLOOD COUNT 3.05 10^6/ul (4.20-5.40); RED CELL DISTRIBUTION WIDTH 11.8 % (11.5-14.5); UNCORRECTED WBC 7.2 10^3/ul (4.8-10.8); WHITE BLOOD COUNT 7.2 10^3/ul (4.8-10.8)
[2016-10-03 05:59] LABS: POTASSIUM 3.9 mmol/L (3.5-5.1)
[2016-10-03 06:02] LABS: CREATININE 0.6 mg/dl (0.44-1.00)
[2016-10-03 06:03] LABS: CALCIUM 8.2 mg/dl (8.4-10.2)
[2016-10-03 06:21] LABS: CONDITION 1; LH ANALYZER COMMENTS 1
[2016-10-03] MEDS ORDERED: MAGNESIUM CITRATE 300 ML BTL PO ONE (08:00)
[2016-10-03 08:20] VITALS: BP 121/63; RESP 18
--- NOTE | 2016-10-03 15:32 | QN ---
Documentation Comment Progress note This patient is being evaluated preoperatively . She is Scheduled to undergo a a laparotomy or laparoscopy for removal a fairly large 10 X 10 cm pelvic mass Bowel prep is in process. This patient is a 49 yol G4 P 3 who was admited due to large pelvic mass.which is of ovarian origine. the following line is observation of Rn Complex Care Oncologist Dr. Robles This is a 50-year-old female, para 3, who presented to the emergency room on 09/30/2016 for abdominal pelvic pain. She has undergone ultrasound and CT scan of abdomen and pelvis. CT scan showed a complex cystic mass about 9.3 x 9.1 x 8.7 cm. There is no free fluid and no adenopathy. Pelvic ultrasound confirms. Her tumor markers were drawn and a CA-125 was normal. The patient was seen by laborist and hospitalist and other specialties. since Sunday and, now it was determined that due to the patient's age and size of the mass, YARD SWITCH OPERATOR oncology consultation was obtained. The patient has been afebrile. White count is normal; however, hemoglobin is decreasing. Today the patien is stable and afebrile beeing prepared for surgery in AM. Laboratory Tests Test 10/03/16 04:45 Anion Gap 13 Basophils # 0.010^3/ul Basophils % 0.3% Blood Urea Nitrogen 9mg/dl Calcium Level 8.2mg/dl Carbon Dioxide Level 28mmol/L Chloride Level 103mmol/L Creatinine 0.60mg/dl Eosinophils # 0.110^3/ul Eosinophils % 2.0% Glucose Level 117mg/dl Hematocrit 26.7% Hemoglobin 9.3g/dl Lymphocytes # 0.810^3/ul Lymphocytes % 10.8% Mean Corpuscular Hemoglobin 30.5pg Mean Corpuscular Hemoglobin Concent 34.8g/dl Mean Corpuscular Volume 87.6fl Mean Platelet Volume 8.1fl Monocytes # 1.110^3/ul Monocytes % 15.8% Neutrophils # 5.110^3/ul Neutrophils % 71.1% Nucleated Red Blood Cells # 0.010^3/ul Nucleated Red Blood Cells % 0.0/100WBC Platelet Count 50601^3/UL Potassium Level 3.9mmol/L Red Blood Count 3.0510^6/ul Red Cell Distribution Width 11.8% Sodium Level 140mmol/L White Blood Count 7.210^3/ul Current Medications Medications (Trade) Dose Ordered Sig/Elisa Route PRN Reason Start Time Stop Time Status Last Admin Dose Admin Sodium Chloride (NS) 1,000 ml @ 1,000 mls/hr Q1H STAT IV 09/29/16 22:00 09/29/16 22:59 DC 09/29/16 22:13 1,000 MLS/HR Morphine Sulfate (morphine) 4 mg ONCE STAT IV 09/29/16 22:00 09/29/16 22:01 DC 09/29/16 22:13 4 MG Ondansetron HCl (Zofran Inj) 4 mg ONCE STAT IV 09/29/16 22:00 09/29/16 22:01 DC 09/29/16 22:13 4 MG Hydromorphone HCl (Dilaudid) 1 mg ONCE STAT IV 09/29/16 23:25 09/29/16 23:27 DC 09/29/16 23:44 1 MG Metoclopramide HCl (Reglan) 10 mg ONCE ONCE IV 09/30/16 01:00 09/30/16 01:01 DC 09/30/16 00:54 10 MG Ondansetron HCl (Zofran Inj) 4 mg ONCE STAT IV 09/30/16 00:34 09/30/16 00:36 DC 09/30/16 00:54 4 MG Hydromorphone HCl (Dilaudid) 2 mg ONCE STAT IV 09/30/16 01:09 09/30/16 01:10 DC 09/30/16 01:31 2 MG Diclofenac Sodium (Dyloject) 37.5 mg ONCE STAT IV 09/30/16 01:19 09/30/16 01:20 DC 09/30/16 01:31 37.5 MG Ondansetron HCl (Zofran Inj) 4 mg BRIDGE ORDER PRN IV NAUSEA AND/OR VOMITING 09/30/16 02:00 09/30/16 06:56 DC Acetaminophen (Tylenol Tab) 650 mg ER BRIDGE PRN PO MILD PAIN/FEVER 09/30/16 02:00 09/30/16 06:56 DC Lorazepam (Ativan) 1 mg ONCE ONCE IV 09/30/16 03:30 09/30/16 03:31 DC 09/30/16 03:32 1 MG Ondansetron HCl 4 mg 4 mg ONCE STAT IV 09/30/16 03:08 09/30/16 03:09 DC 09/30/16 03:32 4 MG Potassium Chloride/Dextrose/ Sod Cl (D5-1/2ns + KCl 20 Meq) 1,000 ml @ 70 mls/hr [id number] IV 09/30/16 07:00 10/03/16 04:55 70 MLS/HR Metoclopramide HCl (Reglan) 10 mg Q6 IV 09/30/16 12:00 10/03/16 11:36 10 MG Ondansetron HCl (Zofran Inj) 4 mg Q4H PRN IV NAUSEA AND/OR VOMITING 09/30/16 07:00 10/02/16 22:27 4 MG Hydromorphone HCl (Dilaudid) 2 mg Q3H PRN IV PAIN 09/30/16 07:00 10/03/16 15:18 2 MG Acetaminophen/ Hydrocodone Bitart ([place] (5/325)) 1 tab Q4H PRN PO pain 09/30/16 07:00 10/02/16 18:43 1 TAB Acetaminophen (Tylenol Tab) 650 mg Q4H PRN PO PAIN AND OR ELEVATED TEMP 09/30/16 07:00 Magnesium Citrate (Citroma) 300 ml ONCE ONCE PO 10/03/16 08:00 10/03/16 08:01 DC 10/03/16 09:31 300 ML LUNA KRAFT MD Oct 03, 2016 15:32
--- NOTE | 2016-10-03 17:24 | PN ---
Date/Time of Note Date/Time of Note DATE: 10/03/16 TIME: 17:23 Assessment/Plan VTE Prophylaxis VTE Prophylaxis Intervention: other Lines/Catheters IV Catheter Type (from Nrsg): Peripheral IV Assessment/Plan Chief Complaint/Hosp Course 1. 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 2. Intractable pain secondary to ovarian mass.paIN BETTER 3. History of uterine fibroids, status post hysterectomy at the age 48 for symptomatic fibroids. 4. History of cholecystectomy. PLAN D/W DR Aleksandr NINA surgery soon Problems: Subjective 24 Hr Interval Summary Cardiovascular: no complaints Gastrointestinal: no complaints Exam/Review of Systems Vital Signs Vitals Vital Signs Date Time Temp Pulse Resp B/P Pulse Ox O2 Delivery O2 Flow Rate FiO2 10/03/16 08:20 99.2 87 18 121/63 95 09/30/16 08:00 Room Air Intake and Output 10/02/16 10/02/16 10/03/16 15:00 23:00 07:00 Intake Total 1560 ml 1080 ml Output Total 3 ml 3 ml Balance 1557 ml 1077 ml Exam Respiratory: clear to auscultation Cardiovascular: regular rate and rhythm Gastrointestinal: soft Musculoskeletal: nl extremities to inspection Results Result Diagram: 10/03/16 0445 10/03/16 0445 Results 24 hrs Laboratory Tests Test 10/03/16 04:45 Anion Gap 13 Basophils # 0.0 Basophils % 0.3 Blood Urea Nitrogen 9 Calcium Level 8.2 L Carbon Dioxide Level 28 Chloride Level 103 Creatinine 0.60 Eosinophils # 0.1 Eosinophils % 2.0 Glucose Level 117 Hematocrit 26.7 L Hemoglobin 9.3 L Lymphocytes # 0.8 Lymphocytes % 10.8 L Mean Corpuscular Hemoglobin 30.5 Mean Corpuscular Hemoglobin Concent 34.8 Mean Corpuscular Volume 87.6 Mean Platelet Volume 8.1 Monocytes # 1.1 H Monocytes % 15.8 H Neutrophils # 5.1 Neutrophils % 71.1 Nucleated Red Blood Cells # 0.0 Nucleated Red Blood Cells % 0.0 Platelet Count 181 Potassium Level 3.9 Red Blood Count 3.05 L Red Cell Distribution Width 11.8 Sodium Level 140 White Blood Count 7.2 Medications Medications Current Medications Potassium Chloride/Dextrose/ Sod Cl (D5-1/2ns + KCl 20 Meq) 1,000 ml @ 70 mls/ hr [id number] IV Last administered on 10/03/16 04:55; Admin Dose 70 MLS/HR; Start 09/30/16 at 07:00 Metoclopramide HCl (Reglan) 10 mg Q6 IV Last administered on 10/03/16 17:12; Admin Dose 10 MG; Start 09/30/16 at 12:00 Ondansetron HCl (Zofran Inj) 4 mg Q4H PRN IV NAUSEA AND/OR VOMITING Last administered on 10/02/16 22:27; Admin Dose 4 MG; Start 09/30/16 at 07:00 Hydromorphone HCl (Dilaudid) 2 mg Q3H PRN IV PAIN Last administered on 15:18; Admin Dose 2 MG; Start 09/30/16 at 07:00 Acetaminophen/ Hydrocodone Bitart ([place] (5/325)) 1 tab Q4H PRN PO pain Last administered on 10/02/16 18:43; Admin Dose 1 TAB; Start 09/30/16 at 07:00 Acetaminophen (Tylenol Tab) 650 mg Q4H PRN PO PAIN AND OR ELEVATED TEMP; Start 09/30/16 at 07:00 EVELYN GARCIA MD Oct 03, 2016 17:24
[2016-10-03 20:15] VITALS: BP 129/66; RESP 18
[2016-10-04] VITALS (23 sets, daily range): BP systolic 97–118; BP diastolic 54–63; PULSE 67–80; RESP 11–20
[2016-10-04] MEDS: METOCLOPRAMIDE 10 MG INJ IV SCH ×3 (04:40→18:20)
[2016-10-04] MEDS: HYDROmorphONE 2 MG/ML SYG IV PRN (04:40)
--- NOTE | 2016-10-04 09:07 | RADRPT ---
PROCEDURE: XR Chest. CLINICAL INDICATION: Preoperative. TECHNIQUE: Two views. Frontal and lateral. COMPARISON: No prior study is available for comparison. FINDINGS: The lungs are clear. The heart size is normal. There is no pleural effusion or pneumothorax. There has been prior cervical spine surgery with plate and screws. IMPRESSION: 1. Prior cervical spine surgery. 2. Otherwise normal images of the chest. RPTAT: QQ .David Arita MD, MD Date Time Electronically viewed and signed by .David Arita MD, MD on 10/04/2016 09:07 .R/
[2016-10-04] MEDS ORDERED: LIDOCAINE 1%/EPI 30 ML INJ ONE (10:12)
[2016-10-04] MEDS ORDERED: ROCURONIUM 50 MG INJ ONE ×2 (10:45→11:53)
[2016-10-04] MEDS ORDERED: MIDAZOLAM 1 MG/ML 2 ML INJ ONE (10:45)
[2016-10-04] MEDS ORDERED: PROPOFOL 20 ML ONE (10:45)
[2016-10-04] MEDS ORDERED: morphine SULFATE/PF (10 MG/10 ML) INJ ONE (10:46)
--- NOTE | 2016-10-04 10:49 | HPN ---
Date/Time of Note Date/Time of Note DATE: 10/04/16 TIME: 10:48 Interval H&P Admission Note Pt. seen H&P reviewed: No system changes KALEN NINA MD Oct 04, 2016 10:49
[2016-10-04] MEDS ORDERED: CEFAZOLIN 1 GM INJ ONE (11:53)
[2016-10-04] MEDS ORDERED: ONDANSETRON 4 MG INJ ONE (11:54)
[2016-10-04] MEDS ORDERED: KETOROLAC 30 MG INJ ONE (11:54)
[2016-10-04] MEDS ORDERED: DEXAMETHASONE 4 MG/ML 1 ML INJ ONE (11:54)
[2016-10-04] MEDS ORDERED: METOCLOPRAMIDE 10 MG INJ ONE (11:54)
[2016-10-04] MEDS ORDERED: ONDANSETRON 4 MG INJ IV PRN ×2 (12:30→13:00)
[2016-10-04] MEDS ORDERED: DIPHENHYDRAMINE 50 MG INJ IV PRN ×2 (12:30)
[2016-10-04] MEDS ORDERED: HYDROmorphONE 1 MG/ML SYG IV PRN ×2 (12:30)
[2016-10-04] MEDS ORDERED: HYDROCODONE/APAP (5/325) TAB PO PRN (12:30)
[2016-10-04] MEDS ORDERED: morphine 2 MG INJ IV PRN ×2 (12:30→13:00)
[2016-10-04] MEDS ORDERED: morphine (1 MG/ML) 10ML SYRINGE IV PRN ×3 (12:30)
[2016-10-04] MEDS ORDERED: EPHEDrine SULFATE 50 MG/5 ML SYG IV PRN (12:30)
[2016-10-04] MEDS ORDERED: NALBUPHINE HCL (10 MG/1 ML) INJ IV PRN (12:30)
[2016-10-04] MEDS ORDERED: morphine 4 MG/ML VIAL IV PRN (12:30)
[2016-10-04] MEDS ORDERED: ALBUMIN HUMAN 5% 250 ML IV PRN (12:30)
[2016-10-04] MEDS ORDERED: NALOXONE (0.4 MG/ML) INJ IV PRN (12:30)
[2016-10-04] MEDS ORDERED: HYDROmorphONE (0.2 MG/ML) 10ML SYG IV PRN ×2 (12:30)
[2016-10-04] MEDS ORDERED: ZOLPIDEM 5 MG TAB PO PRN (12:30)
--- NOTE | 2016-10-04 12:55 | OPPN ---
Date/Time of Note Date/Time of Note DATE: 10/04/16 TIME: 12:52 Operative/Procedure Note Pre-Operative Diagnosis Pelvic mass, abdominal pain. Post-Operative Diagnosis Same, with DARNELL torsion Procedure LSC, exploratory laparotomy, BSO, Appy, GLORIA Surgeon: KALEN NINA MD Findings DARNELL is at 15 cm, inflammed, torsed and necrotic. No obvious evidnece of malignancy. Estimated blood loss: 100 - 150 ml's Drains Christian x 1 Specimens Bilateral tubes and ovaries, appendix Complications: None Anesthesia type: spinal KALEN NINA MD Oct 04, 2016 12:54
[2016-10-04] MEDS ORDERED: ACETAMINOPHEN 325 MG TAB PO PRN (13:00)
[2016-10-04] MEDS: HYDROmorphONE (0.2 MG/ML) 10ML SYG IV PRN ×3 (13:20→13:34)
[2016-10-04 14:02] LABS: ADD UMIC YES; URINE BILIRUBIN (Dip) 1+ (NEGATIVE); URINE BLOOD (Dip) TRACE (NEGATIVE); URINE COLOR YELLOW (YELLOW); URINE GLUCOSE (Dip) NEGATIVE (NEGATIVE); URINE KETONES (Dip) TRACE (NEGATIVE); URINE LEUKOCYTE ESTERASE (Dip) NEGATIVE (NEGATIVE); URINE NITRITE (Dip) NEGATIVE (NEGATIVE); URINE TOTAL PROTEIN (Dip) 2+ (NEGATIVE); URINE UROBILINOGEN (Dip) 0.2 E.U./dL (0.1-1.0)
[2016-10-04 14:16] LABS: ICTOTEST NEGATIVE (NEGATIVE)
[2016-10-04 14:42] LABS: BASOPHILS % 0.2 % (0.0-2.0); EOSINOPHILS # 0.1 10^3/ul (0.0-0.5); EOSINOPHILS % 0.9 % (0.0-7.0); HEMATOCRIT 27.2 % (37.0-47.0); HEMOGLOBIN 9.2 g/dl (12.0-16.0); LYMPHOCYTES # 0.5 10^3/ul (0.8-2.9); MEAN CORPUSCULAR HEMOGLOBIN 30.1 pg (29.0-33.0); MEAN CORPUSCULAR HGB CONC 33.9 g/dl (32.0-37.0); MEAN CORPUSCULAR VOLUME 88.7 fl (82.0-101.0); MEAN PLATELET VOLUME 7.6 fl (7.4-10.4); MONOCYTE # 0.8 10^3/ul (0.3-0.9); MONOCYTES % 8.2 % (0.0-11.0); NEUTROPHIL # 8.1 10^3/ul (1.6-7.5); NEUTROPHILS % 85.7 % (39.0-77.0); PLATELET COUNT 236 10^3/UL (140-440); RED BLOOD COUNT 3.06 10^6/ul (4.20-5.40); RED CELL DISTRIBUTION WIDTH 12.3 % (11.5-14.5); UNCORRECTED WBC 9.5 10^3/ul (4.8-10.8); WHITE BLOOD COUNT 9.5 10^3/ul (4.8-10.8)
[2016-10-04 14:43] LABS: CONDITION 1
[2016-10-04 14:45] LABS: POTASSIUM 4.3 mmol/L (3.5-5.1)
[2016-10-04 14:48] LABS: CREATININE 0.57 mg/dl (0.44-1.00)
[2016-10-04 14:49] LABS: CALCIUM 8.1 mg/dl (8.4-10.2)
[2016-10-04] MEDS: LACTATED RINGER'S 1,000 ML IV SCH ×2 (15:50→20:48)
--- NOTE | 2016-10-04 21:31 | PN ---
Date/Time of Note Date/Time of Note DATE: 10/04/16 TIME: 21:30 Assessment/Plan VTE Prophylaxis VTE Prophylaxis Intervention: other Lines/Catheters Urinary Cath still in place: Yes Reason Cath still needed: other (indicate) Assessment/Plan Chief Complaint/Hosp Course 1. 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 2. Intractable pain secondary to ovarian mass.paIN BETTER 3. History of uterine fibroids, status post hysterectomy at the age 48 for symptomatic fibroids. 4. History of cholecystectomy. PLAN per dr pratt Problems: Subjective 24 Hr Interval Summary Respiratory: no complaints Exam/Review of Systems Vital Signs Vitals Vital Signs Date Time Temp Pulse Resp B/P Pulse Ox O2 Delivery O2 Flow Rate FiO2 10/04/16 20:04 98.3 85 18 111/63 93 10/04/16 17:05 Room Air 10/04/16 13:24 6.0 Intake and Output 10/03/16 10/03/16 10/04/16 14:59 22:59 06:59 Intake Total 1560 ml 1040 ml Balance 1560 ml 1040 ml Exam Neck: supple Cardiovascular: regular rate and rhythm Gastrointestinal: bowel sounds (+), soft Results Result Diagram: 10/04/16 1425 10/04/16 1425 Results 24 hrs Laboratory Tests Test 10/04/16 13:45 10/04/16 14:25 Urine Bilirubin 1+ H Urine Clarity CLEAR Urine Color YELLOW Urine Glucose NEGATIVE Urine Hemoglobin TRACE Urine Ictotest NEGATIVE Urine Ketones TRACE H Urine Leukocyte Esterase NEGATIVE Urine Microscopic RBC 2-5 Urine Microscopic WBC 0-2 Urine Nitrite NEGATIVE Urine Specific [place] 1.025 Urine Total Protein 2+ H Urine Urobilinogen 0.2 E.U./dL Urine pH 8.5 Anion Gap 15 Basophils # 0.0 Basophils % 0.2 Blood Urea Nitrogen 13 Calcium Level 8.1 L Carbon Dioxide Level 27 Chloride Level 100 Creatinine 0.57 Eosinophils # 0.1 Eosinophils % 0.9 Glucose Level 125 Hematocrit 27.2 L Hemoglobin 9.2 L Lymphocytes # 0.5 L Lymphocytes % 5.0 L Mean Corpuscular Hemoglobin 30.1 Mean Corpuscular Hemoglobin Concent 33.9 Mean Corpuscular Volume 88.7 Mean Platelet Volume 7.6 Monocytes # 0.8 Monocytes % 8.2 Neutrophils # 8.1 H Neutrophils % 85.7 H Nucleated Red Blood Cells # 0.0 Nucleated Red Blood Cells % 0.0 Platelet Count 236 # Potassium Level 4.3 Red Blood Count 3.06 L Red Cell Distribution Width 12.3 Sodium Level 138 White Blood Count 9.5 # Medications Medications Current Medications Metoclopramide HCl (Reglan) 10 mg Q6 IV Last administered on 10/04/16 18:20; Admin Dose 10 MG; Start 09/30/16 at 12:00 Hydromorphone HCl (Dilaudid) 0.2 mg Q2H PRN IV PAIN LEVEL 1-5; Start 10/04/16 at 12:30 Hydromorphone HCl (Dilaudid) 0.4 mg Q2H PRN IV PAIN LEVEL 6-10 Last administered on 10/04/16 16:19; Admin Dose 0.4 MG; Start 10/04/16 at 12:30 Morphine Sulfate (morphine) 2 mg Q2H PRN IV PAIN LEVEL 1-5; Start 10/04/16 at 12:30; Stop 10/05/16 at 12:29 Morphine Sulfate (morphine) 4 mg Q2H PRN IV PAIN LEVEL 6-10; Start 10/04/16 at 12:30; Stop 10/05/16 at 12:29 Acetaminophen/ Hydrocodone Bitart ([place] (5/325)) 1 tab Q4H PRN PO PAIN LEVEL 4 -6; Start 10/04/16 at 12:30; Stop 10/05/16 at 12:29 Diphenhydramine HCl (Benadryl) 25 mg Q4H PRN IV PRURITUS; Start 10/04/16 at 12: 30 Nalbuphine HCl (Nubain) 10 mg Q4H PRN IV PRURITUS; Start 10/04/16 at 12:30 Ondansetron HCl (Zofran Inj) 4 mg Q6H PRN IV NAUSEA AND/OR VOMITING Last administered on 10/04/16 16:27; Admin Dose 4 MG; Start 10/04/16 at 12:30; Stop 10/05/16 at 12:29 Naloxone HCl 0.2 mg 0.2 mg Q2M PRN IV FOR RESP RATE 8 OR LESS; Start 10/04/16 at 12:30 Lactated Ringer's (Lr) 1,000 ml @ 125 mls/hr Q8H IV Last administered on 15:50; Admin Dose 125 MLS/HR; Start 10/04/16 at 12:48 Acetaminophen (Tylenol Tab) 650 mg Q4H PRN PO PAIN LEVEL 1-5; Start 10/04/16 at 13:00 Acetaminophen/ Hydrocodone Bitart ([place] (5/325)) 1 tab Q4H PRN PO PAIN LEVEL 6 -10; Start 10/04/16 at 13:00 Morphine Sulfate (morphine) 2 mg Q2H PRN IV BREAKTHROUGH PAIN; Start 10/04/16 at 13:00 Ondansetron HCl (Zofran Inj) 4 mg Q6H PRN IV NAUSEA AND/OR VOMITING; Start 08/10 at 13:00 EVELYN GARCIA MD Oct 04, 2016 21:31
--- NOTE | 2016-10-04 22:56 | RADRPT ---
Vent Rate: 79 bpm RR Interval: 0 msec OR Interval: 126 msec QRS Duration: 68 msec QT Interval: 348 msec QTC Interval: 399 msec P-R-T [place]: 68 - 66 - 39 degrees Normal sinus rhythm Normal ECG Electronically Signed By: Marcio Gallego [id number]
[2016-10-05] MEDS: METOCLOPRAMIDE 10 MG INJ IV SCH ×5 (00:53→23:32)
[2016-10-05] MEDS: LACTATED RINGER'S 1,000 ML IV SCH ×3 (05:05→21:30)
[2016-10-05 05:23] LABS: EOSINOPHILS % 0.1 % (0.0-7.0); HEMATOCRIT 24.5 % (37.0-47.0); HEMOGLOBIN 8.3 g/dl (12.0-16.0); LYMPHOCYTES # 0.7 10^3/ul (0.8-2.9); LYMPHOCYTES % 8.2 % (15.0-51.0); MEAN CORPUSCULAR HEMOGLOBIN 30.4 pg (29.0-33.0); MEAN CORPUSCULAR HGB CONC 34.1 g/dl (32.0-37.0); MEAN CORPUSCULAR VOLUME 89.1 fl (82.0-101.0); MEAN PLATELET VOLUME 7.7 fl (7.4-10.4); MONOCYTES % 12.2 % (0.0-11.0); NEUTROPHIL # 6.5 10^3/ul (1.6-7.5); NEUTROPHILS % 79.5 % (39.0-77.0); PLATELET COUNT 232 10^3/UL (140-440); RED BLOOD COUNT 2.75 10^6/ul (4.20-5.40); RED CELL DISTRIBUTION WIDTH 12.2 % (11.5-14.5); UNCORRECTED WBC 8.2 10^3/ul (4.8-10.8); WHITE BLOOD COUNT 8.2 10^3/ul (4.8-10.8)
[2016-10-05 05:32] LABS: POTASSIUM 4.5 mmol/L (3.5-5.1)
[2016-10-05 05:35] LABS: CREATININE 0.55 mg/dl (0.44-1.00)
[2016-10-05 05:38] LABS: CONDITION 1
--- NOTE | 2016-10-05 07:19 | OPR ---
DATE OF OPERATION: 10/04/2016 PREOPERATIVE DIAGNOSES: 1. A 10 x 10 cm pelvic mass. 2. Abdominal pain. POSTOPERATIVE DIAGNOSES: 1. Left ovarian torsion. 2. A 15 cm left ovarian mass. SURGEON: Adore Boone MD ELECTRIC SWITCH REPAIRER: None. OPERATION PERFORMED: 1. Laparoscopy. 2. Exploratory laparotomy. 3. Radical resection of pelvic mass. 4. Bilateral salpingo-oophorectomy. 5. Appendectomy. 6. Lysis of adhesions. ANESTHESIA: General endotracheal. ANESTHESIOLOGIST: Popeye Kelley MD ESTIMATED BLOOD LOSS: About 20 mL INTRAOPERATIVE FINDING: The patient has a 15 cm torsed left ovarian mass. The colon, appendix were all adherent to the mass. The procedure converted to open procedure and both ovaries removed. Frozen section of left ovary was benign hemorrhagic. HISTORY: This is a 50-year-old female who presented to the emergency room here at [facility] with acute abdominal pain. She was evaluated by the laborist. After a workup including ultrasound, CT scan, the mass was about 10 x 10 cm. CA-125 was normal. However, due to the size of the mass and the patient's age, [facility] oncology consultation was obtained for possibility of malignancy. The patient had a prior history of section x3 and vaginal hysterectomy. The patient aware that bilateral salpingo- oophorectomy will be performed due to her age and possibility of malignancy. DESCRIPTION OF PROCEDURE: She underwent bowel prep and was crossmatched for blood and is ready for above operations. Taken to the OR. After achieving adequate anesthesia, placed in lithotomy position, prepped and draped in usual sterile fashion. Zhang catheter was inserted by nursing staff. Supraumbilical incision made using 11 blade. 5 mm trocar was inserted. Pneumoperitoneum was established. A second trocar was placed in right lower quadrant under direct visualization. At this time, it became quite clear there was significant inflammatory response in the pelvic area. The colon and the appendix were all stuck to the mass, the mass also stuck to anterior abdominal wall. The mass appeared to be necrotic and torsed. The mass is quite big, is about 15 cm. Again, due to the size and her age, I proceeded to convert this to exploratory laparotomy. At this time, laparoscopic instruments were removed from the surgical field, and I proceeded to make a vertical incision extending from suprapubic to the umbilicus, carried down to level of the fascia. Fascia entered. Peritoneal cavity was entered. At this time, I then placed the [place] retractor in the abdomen. I proceeded to separate all the filmy adhesions from the colon, appendix and the small bowel to the ovary. Once this , I then proceeded to isolate the mass. The mass arising from the left ovary, and it was torsed multiple times at the pelvic rim. At this time, I then opened the peritoneum above the left round ligament. This was opened to the pericolic gutter. Pararectal space opened. Avascular space of [place] was then opened. At this time, left IP ligament was isolated, doubly clamped, cut and doubly suture ligated. The mass was then . The original round ligament was also clamped, cut and suture ligated. At this time, the entire mass and sent to pathology for evaluation. Once I had better visualization, bowel was then packed away using ulisses arm. Next I proceeded to isolate right ovary in a similar fashion. Peritoneum above the round ligament opened to right pericolic gutter. Pararectal space opened. Avascular space of [place] was then opened. Right IP ligament was doubly clamped, doubly suture ligated. Right round ligament also clamped, cut and suture ligated. This will be sent to pathology as a permanent section. At this time, I then proceeded to isolate the appendix. Appendix was inflamed due to adhesion to the mass. The base of appendix was opened. Appendectomy was performed using Endo SUNG 35 mm. Mesoappendix tissue was clamped using Z clamp, cut and suture ligated. At this time, I was satisfied with the procedure. Pelvis thoroughly irrigated. The pathology came back with a frozen section of a probable benign hemorrhagic ovarian mass that was torsed. At this time pelvis thoroughly irrigated, was hemostatic. Bowel was placed back in normal anatomic position. A Christian drain was placed in the right lower quadrant through trocar site, and this was anchored to the skin. At this time, instrument count and lap counts correct, and I proceeded to close the fascia using looped PDS in mass closure fashion. Subcutaneous tissue irrigated, skin re-approximated using stainless steel flex. The camera trocar site was also closed using stainless steel flex. At this time, patient was cleansed, dressing applied, successfully extubated, transferred to recovery in stable condition. Dictated By: ADORE ROBBINS/HARSHAL Conf#: [id number] DID#: [id number] MTDD
[2016-10-05 07:28] VITALS: BP 113/55; RESP 16
--- NOTE | 2016-10-05 08:59 | CONS ---
Date/Time of Note Date/Time of Note DATE: 10/05/16 TIME: 08:56 Consultation Date/Type/Reason Admit Date/Time Sep 30, 2016 at 01:37 Initial Consult Date 09/30/16 Type of Consultation: Anesthesia Reason for Consultation Bilateral Salpingooophorectomies Referring Provider: PATRICIA ESCOBEDO DO 24 HR Interval Summary Free Text/Dictation Patient is a 50 year old female s/p hysterectomy and C/S X3, went under anesthesia for Laparascopic vs Open BSO due to intractable Pelvic and abdominal pain. Spinal Duramorph was given for post op pain control. She is doing well, vital signs are stable she is afebrile. Motor and sensory are intact. No nausea or vomiting or itching noted. Pain is well controlled. No paresthesia reported. No Apnea reported. She will be followed up by her primary team. Exam/Review of Systems Vital Signs Vitals Vital Signs Date Time Temp Pulse Resp B/P Pulse Ox O2 Delivery O2 Flow Rate FiO2 10/05/16 07:28 98.2 84 16 113/55 96 10/04/16 17:05 Room Air 10/04/16 13:24 6.0 Intake and Output 10/04/16 10/04/16 10/05/16 14:59 22:59 06:59 Intake Total 1200 ml 470 ml 1860 ml Output Total 385 ml 270 ml 1250 ml Balance 815 ml 200 ml 610 ml Results Result Diagram: 10/05/16 0445 10/05/16 0445 Results 24 hrs Laboratory Tests Test 10/04/16 13:45 10/04/16 14:25 10/05/16 04:45 Urine Bilirubin 1+ H Urine Clarity CLEAR Urine Color YELLOW Urine Glucose NEGATIVE Urine Hemoglobin TRACE Urine Ictotest NEGATIVE Urine Ketones TRACE H Urine Leukocyte Esterase NEGATIVE Urine Microscopic RBC 2-5 Urine Microscopic WBC 0-2 Urine Nitrite NEGATIVE Urine Specific [place] 1.025 Urine Total Protein 2+ H Urine Urobilinogen 0.2 E.U./dL Urine pH 8.5 Anion Gap 15 15 Basophils # 0.0 0.0 Basophils % 0.2 0.0 Blood Urea Nitrogen 13 17 Calcium Level 8.1 L 8.0 L Carbon Dioxide Level 27 27 Chloride Level 100 101 Creatinine 0.57 0.55 Eosinophils # 0.1 0.0 Eosinophils % 0.9 0.1 Glucose Level 125 118 Hematocrit 27.2 L 24.5 L Hemoglobin 9.2 L 8.3 L Lymphocytes # 0.5 L 0.7 L Lymphocytes % 5.0 L 8.2 L Mean Corpuscular Hemoglobin 30.1 30.4 Mean Corpuscular Hemoglobin Concent 33.9 34.1 Mean Corpuscular Volume 88.7 89.1 Mean Platelet Volume 7.6 7.7 Monocytes # 0.8 1.0 H Monocytes % 8.2 12.2 H Neutrophils # 8.1 H 6.5 Neutrophils % 85.7 H 79.5 H Nucleated Red Blood Cells # 0.0 0.0 Nucleated Red Blood Cells % 0.0 0.0 Platelet Count 236 # 232 Potassium Level 4.3 4.5 Red Blood Count 3.06 L 2.75 L Red Cell Distribution Width 12.3 12.2 Sodium Level 138 138 White Blood Count 9.5 # 8.2 Medications Medications Current Medications Metoclopramide HCl (Reglan) 10 mg Q6 IV Last administered on 10/05/16 05:04; Admin Dose 10 MG; Start 09/30/16 at 12:00 Hydromorphone HCl (Dilaudid) 0.2 mg Q2H PRN IV PAIN LEVEL 1-5; Start 10/04/16 at 12:30 Hydromorphone HCl (Dilaudid) 0.4 mg Q2H PRN IV PAIN LEVEL 6-10 Last administered on 10/04/16 16:19; Admin Dose 0.4 MG; Start 10/04/16 at 12:30 Morphine Sulfate (morphine) 2 mg Q2H PRN IV PAIN LEVEL 1-5; Start 10/04/16 at 12:30; Stop 10/05/16 at 12:29 Morphine Sulfate (morphine) 4 mg Q2H PRN IV PAIN LEVEL 6-10; Start 10/04/16 at 12:30; Stop 10/05/16 at 12:29 Acetaminophen/ Hydrocodone Bitart ([place] (5/325)) 1 tab Q4H PRN PO PAIN LEVEL 4 -6; Start 10/04/16 at 12:30; Stop 10/05/16 at 12:29 Diphenhydramine HCl (Benadryl) 25 mg Q4H PRN IV PRURITUS; Start 10/04/16 at 12: 30 Nalbuphine HCl (Nubain) 10 mg Q4H PRN IV PRURITUS; Start 10/04/16 at 12:30 Ondansetron HCl (Zofran Inj) 4 mg Q6H PRN IV NAUSEA AND/OR VOMITING Last administered on 10/04/16 16:27; Admin Dose 4 MG; Start 10/04/16 at 12:30; Stop 10/05/16 at 12:29 Naloxone HCl 0.2 mg 0.2 mg Q2M PRN IV FOR RESP RATE 8 OR LESS; Start 10/04/16 at 12:30 Lactated Ringer's (Lr) 1,000 ml @ 125 mls/hr Q8H IV Last administered on 05:05; Admin Dose 125 MLS/HR; Start 10/04/16 at 12:48 Acetaminophen (Tylenol Tab) 650 mg Q4H PRN PO PAIN LEVEL 1-5; Start 10/04/16 at 13:00 Acetaminophen/ Hydrocodone Bitart ([place] (5/325)) 1 tab Q4H PRN PO PAIN LEVEL 6 -10; Start 10/04/16 at 13:00 Morphine Sulfate (morphine) 2 mg Q2H PRN IV BREAKTHROUGH PAIN; Start 10/04/16 at 13:00 Ondansetron HCl (Zofran Inj) 4 mg Q6H PRN IV NAUSEA AND/OR VOMITING; Start 08/10 at 13:00 MAGDALENA CHOI MD Oct 05, 2016 08:58
[2016-10-05] MEDS: HYDROCODONE/APAP (5/325) TAB PO PRN ×3 (14:39→22:35)
--- NOTE | 2016-10-05 14:40 | PN ---
Date/Time of Note Date/Time of Note DATE: 10/05/16 TIME: 14:38 Assessment/Plan VTE Prophylaxis VTE Prophylaxis Intervention: other Lines/Catheters IV Catheter Type (from Nrs): Peripheral IV Urinary Cath still in place: No Assessment/Plan Chief Complaint/Hosp Course 1. 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 Intractable pain secondary to ovarian mass.paIN BETTER 3. History of uterine fibroids, status post hysterectomy at the age 48 for symptomatic fibroids. 4. History of cholecystectomy. 5 post anemia PLAN per dr pratt ck labs Problems: Subjective 24 Hr Interval Summary Respiratory: no complaints Cardiovascular: no complaints Genitourinary: other (abd pain) Exam/Review of Systems Vital Signs Vitals Vital Signs Date Time Temp Pulse Resp B/P Pulse Ox O2 Delivery O2 Flow Rate FiO2 10/05/16 07:28 98.2 84 16 113/55 96 10/04/16 17:05 Room Air 10/04/16 13:24 6.0 Intake and Output 10/04/16 10/04/16 10/05/16 15:00 23:00 07:00 Intake Total 1200 ml 470 ml 1860 ml Output Total 385 ml 270 ml 1250 ml Balance 815 ml 200 ml 610 ml Exam ENMT: nl external ears & nose Neck: supple Respiratory: clear to auscultation Cardiovascular: regular rate and rhythm Gastrointestinal: soft Musculoskeletal: nl extremities to inspection Results Result Diagram: 10/05/165 10/05/16 0445 Results 24 hrs Laboratory Tests Test 10/05/16 04:45 Anion Gap 15 Basophils # 0.0 Basophils % 0.0 Blood Urea Nitrogen 17 Calcium Level 8.0 L Carbon Dioxide Level 27 Chloride Level 101 Creatinine 0.55 Eosinophils # 0.0 Eosinophils % 0.1 Glucose Level 118 Hematocrit 24.5 L Hemoglobin 8.3 L Lymphocytes # 0.7 L Lymphocytes % 8.2 L Mean Corpuscular Hemoglobin 30.4 Mean Corpuscular Hemoglobin Concent 34.1 Mean Corpuscular Volume 89.1 Mean Platelet Volume 7.7 Monocytes # 1.0 H Monocytes % 12.2 H Neutrophils # 6.5 Neutrophils % 79.5 H Nucleated Red Blood Cells # 0.0 Nucleated Red Blood Cells % 0.0 Platelet Count 232 Potassium Level 4.5 Red Blood Count 2.75 L Red Cell Distribution Width 12.2 Sodium Level 138 White Blood Count 8.2 Medications Medications Current Medications Metoclopramide HCl (Reglan) 10 mg Q6 IV Last administered on 10/05/16 12:05; Admin Dose 10 MG; Start 09/30/16 at 12:00 Hydromorphone HCl (Dilaudid) 0.2 mg Q2H PRN IV PAIN LEVEL 1-5; Start 10/04/16 at 12:30 Hydromorphone HCl (Dilaudid) 0.4 mg Q2H PRN IV PAIN LEVEL 6-10 Last administered on 10/04/16 16:19; Admin Dose 0.4 MG; Start 10/04/16 at 12:30 Diphenhydramine HCl (Benadryl) 25 mg Q4H PRN IV PRURITUS; Start 10/04/16 at 12: 30 Nalbuphine HCl (Nubain) 10 mg Q4H PRN IV PRURITUS; Start 10/04/16 at 12:30 Naloxone HCl 0.2 mg 0.2 mg Q2M PRN IV FOR RESP RATE 8 OR LESS; Start 10/04/16 at 12:30 Lactated Ringer's (Lr) 1,000 ml @ 125 mls/hr Q8H IV Last administered on 12:05; Admin Dose 125 MLS/HR; Start 10/04/16 at 12:48 Acetaminophen (Tylenol Tab) 650 mg Q4H PRN PO PAIN LEVEL 1-5; Start 10/04/16 at 13:00 Acetaminophen/ Hydrocodone Bitart ([place] (5/325)) 1 tab Q4H PRN PO PAIN LEVEL 6 -10; Start 10/04/16 at 13:00 Morphine Sulfate (morphine) 2 mg Q2H PRN IV BREAKTHROUGH PAIN; Start 10/04/16 at 13:00 Ondansetron HCl (Zofran Inj) 4 mg Q6H PRN IV NAUSEA AND/OR VOMITING; Start 08/10 at 13:00 EVELYN GARCIA MD Oct 05, 2016 14:39
--- NOTE | 2016-10-05 17:17 | EN ---
Date/Time of Note Date/Time of Note DATE: 10/05/16 TIME: 17:04 Event Note Surgery Surgery Event Note This patient is a 49 yol G4 P 3 who was admited due to large pelvic mass.which is of ovarian origine. the following line is observation of [employer] Oncologist Dr. Robles This is a 50-year-old female, para 3, who presented to the emergency room on 09/30/2016 for abdominal pelvic pain. She has undergone ultrasound and CT scan of abdomen and pelvis. CT scan showed a complex cystic mass about 9.3 x 9.1 x 8.7 cm. There is no free fluid and no adenopathy. Pelvic ultrasound confirms. Her tumor markers were drawn and a CA-125 was normal. Patient underwent .laparotomy and bilateral SO no evidence of malignancy She is now fairly comfortable Afebrile Chest clear Bbdomen is soft Bowel sounds active. Will advance her diet to soft Laboratory Tests Test 10/05/16 04:45 Anion Gap 15 Basophils # 0.010^3/ul Basophils % 0.0% Blood Urea Nitrogen 17mg/dl Calcium Level 8.0mg/dl Carbon Dioxide Level 27mmol/L Chloride Level 101mmol/L Creatinine 0.55mg/dl Eosinophils # 0.010^3/ul Eosinophils % 0.1% Glucose Level 118mg/dl Hematocrit 24.5% Hemoglobin 8.3g/dl Lymphocytes # 0.710^3/ul Lymphocytes % 8.2% Mean Corpuscular Hemoglobin 30.4pg Mean Corpuscular Hemoglobin Concent 34.1g/dl Mean Corpuscular Volume 89.1fl Mean Platelet Volume 7.7fl Monocytes # 1.010^3/ul Monocytes % 12.2% Neutrophils # 6.510^3/ul Neutrophils % 79.5% Nucleated Red Blood Cells # 0.010^3/ul Nucleated Red Blood Cells % 0.0/100WBC Platelet Count 02002^3/UL Potassium Level 4.5mmol/L Red Blood Count 2.7510^6/ul Red Cell Distribution Width 12.2% Sodium Level 138mmol/L White Blood Count 8.210^3/ul Current Medications Medications (Trade) Dose Ordered Sig/Elisa Route PRN Reason Start Time Stop Time Status Last Admin Dose Admin Sodium Chloride (NS) 1,000 ml @ 1,000 mls/hr Q1H STAT IV 09/29/16 22:00 09/29/16 22:59 DC 09/29/16 22:13 Morphine Sulfate (morphine) 4 mg ONCE STAT IV 09/29/16 22:00 09/29/16 22:01 DC 09/29/16 22:13 Ondansetron HCl (Zofran Inj) 4 mg ONCE STAT IV 09/29/16 22:00 09/29/16 22:01 DC 09/29/16 22:13 Hydromorphone HCl (Dilaudid) 1 mg ONCE STAT IV 09/29/16 23:25 09/29/16 23:27 DC 09/29/16 23:44 Metoclopramide HCl (Reglan) 10 mg ONCE ONCE IV 09/30/16 01:00 09/30/16 01:01 DC 09/30/16 00:54 Ondansetron HCl (Zofran Inj) 4 mg ONCE STAT IV 09/30/16 00:34 09/30/16 00:36 DC 09/30/16 00:54 Hydromorphone HCl (Dilaudid) 2 mg ONCE STAT IV 09/30/16 01:09 09/30/16 01:10 DC 09/30/16 01:31 Diclofenac Sodium (Dyloject) 37.5 mg ONCE STAT IV 09/30/16 01:19 09/30/16 01:20 DC 09/30/16 01:31 Ondansetron HCl (Zofran Inj) 4 mg BRIDGE ORDER PRN IV NAUSEA AND/OR VOMITING 09/30/16 02:00 09/30/16 06:56 DC Acetaminophen (Tylenol Tab) 650 mg ER BRIDGE PRN PO MILD PAIN/FEVER 09/30/16 02:00 09/30/16 06:56 DC Lorazepam (Ativan) 1 mg ONCE ONCE IV 09/30/16 03:30 09/30/16 03:31 DC 09/30/16 03:32 Ondansetron HCl 4 mg 4 mg ONCE STAT IV 09/30/16 03:08 09/30/16 03:09 DC 09/30/16 03:32 Potassium Chloride/Dextrose/ Sod Cl (D5-1/2ns + KCl 20 Meq) 1,000 ml @ 70 mls/hr [id number] IV 09/30/16 07:00 10/04/16 13:01 DC 10/03/16 20:42 Metoclopramide HCl (Reglan) 10 mg Q6 IV 09/30/16 12:00 10/05/16 12:05 Ondansetron HCl (Zofran Inj) 4 mg Q4H PRN IV NAUSEA AND/OR VOMITING 09/30/16 07:00 10/04/16 13:06 DC 10/02/16 22:27 Hydromorphone HCl (Dilaudid) 2 mg Q3H PRN IV PAIN 09/30/16 07:00 10/04/16 13:03 DC 10/04/16 04:40 Acetaminophen/ Hydrocodone Bitart ([place] (5/325)) 1 tab Q4H PRN PO pain 09/30/16 07:00 10/04/16 13:03 DC 10/02/16 18:43 Acetaminophen (Tylenol Tab) 650 mg Q4H PRN PO PAIN AND OR ELEVATED TEMP 09/30/16 07:00 10/04/16 13:02 DC Magnesium Citrate (Citroma) 300 ml ONCE ONCE PO 10/03/16 08:00 10/03/16 08:01 DC 10/03/16 09:31 Lidocaine/ Epinephrine 30 ml 30 ml STK-MED ONCE .ROUTE 10/04/16 10:12 10/04/16 10:13 DC Propofol (Diprivan) 20 ml @ ud STK-MED ONCE .ROUTE 10/04/16 10:45 10/04/16 10:46 DC Rocuronium [place] (Zemuron) 50 mg STK-MED ONCE .ROUTE 10/04/16 10:45 10/04/16 10:46 DC Midazolam HCl (Versed) 2 mg STK-MED ONCE .ROUTE 10/04/16 10:45 10/04/16 10:46 DC Morphine Sulfate (Duramorph) 10 mg STK-MED ONCE .ROUTE 10/04/16 10:46 10/04/16 10:47 DC Rocuronium [place] (Zemuron) 50 mg STK-MED ONCE .ROUTE 10/04/16 11:53 10/04/16 11:54 DC Cefazolin Sodium (Ancef) 1 gm STK-MED ONCE .ROUTE 10/04/16 11:53 10/04/16 11:54 DC Ondansetron HCl (Zofran Inj) 4 mg STK-MED ONCE .ROUTE 10/04/16 11:54 10/04/16 11:55 DC Metoclopramide HCl (Reglan) 10 mg STK-MED ONCE .ROUTE 10/04/16 11:54 10/04/16 11:55 DC Ketorolac Tromethamine (Toradol) 30 mg STK-MED ONCE .ROUTE 10/04/16 11:54 10/04/16 11:55 DC Dexamethasone (Decadron) 4 mg STK-MED ONCE .ROUTE 10/04/16 11:54 10/04/16 11:55 DC Morphine Sulfate (morphine (REC)) 2 mg PACU ORDER PRN IV MILD PAIN LEVEL 1-3 10/04/16 12:30 10/04/16 14:03 DC Morphine Sulfate (morphine (REC)) 4 mg PACU ORDER PRN IV MODERATE PAIN LEVEL 4-6 10/04/16 12:30 10/04/16 14:03 DC Morphine Sulfate (morphine (REC)) 6 mg PACU ORDER PRN IV SEVERE PAIN LEVEL 7-10 10/04/16 12:30 10/04/16 14:03 DC Hydromorphone HCl (Dilaudid (Rec)) 0.2 mg PACU ORDER PRN IV MILD PAIN LEVEL 1-3 10/04/16 12:30 10/04/16 14:03 DC 10/04/16 13:40 Hydromorphone HCl (Dilaudid (Rec)) 0.4 mg PACU ORDER PRN IV MODERATE PAIN LEVEL 4-6 10/04/16 12:30 10/04/16 14:03 DC Hydromorphone HCl (Dilaudid (Rec)) 0.6 mg PACU ORDER PRN IV SEVERE PAIN LEVEL 7-10 10/04/16 12:30 10/04/16 14:03 DC 10/04/16 13:34 Ephedrine Sulfate 5 mg 5 mg PACU ORDER PRN IV MAP LESS THAN 60 10/04/16 12:30 10/04/16 14:03 DC Albumin Human 250 ml @ 750 mls/hr PACU ORDER PRN IV SBP LESS THAN 90 10/04/16 12:30 10/04/16 14:03 DC Diphenhydramine HCl (Benadryl) 25 mg PACU ORDER PRN IV PRURITUS 10/04/16 12:30 10/04/16 14:03 DC Hydromorphone HCl (Dilaudid) 0.2 mg Q2H PRN IV PAIN LEVEL 1-5 10/04/16 12:30 Hydromorphone HCl (Dilaudid) 0.4 mg Q2H PRN IV PAIN LEVEL 6-10 10/04/16 12:30 10/04/16 16:19 Morphine Sulfate (morphine) 2 mg Q2H PRN IV PAIN LEVEL 1-5 10/04/16 12:30 10/05/16 12:29 DC Morphine Sulfate (morphine) 4 mg Q2H PRN IV PAIN LEVEL 6-10 10/04/16 12:30 10/05/16 12:29 DC Acetaminophen/ Hydrocodone Bitart ([place] (5/325)) 1 tab Q4H PRN PO PAIN LEVEL 4-6 10/04/16 12:30 10/05/16 12:29 DC 10/05/16 09:40 Diphenhydramine HCl (Benadryl) 25 mg Q4H PRN IV PRURITUS 10/04/16 12:30 Nalbuphine HCl (Nubain) 10 mg Q4H PRN IV PRURITUS 10/04/16 12:30 Ondansetron HCl (Zofran Inj) 4 mg Q6H PRN IV NAUSEA AND/OR VOMITING 10/04/16 12:30 10/05/16 12:29 DC 10/04/16 16:27 Zolpidem Tartrate (Ambien) 5 mg HS MAY REPEAT X 1 PRN PO INSOMNIA 10/04/16 12:30 Naloxone HCl (Narcan) 0.2 mg Q2M PRN IV FOR RESP RATE 8 OR LESS 10/04/16 12:30 Miscellaneous Information DURAMORPH: 0.2 MG SPI... GIVEN NEURAXIAL XX 10/04/16 12:30 10/04/16 14:03 DC Lactated Ringer's (Lr) 1,000 ml @ 125 mls/hr Q8H IV 10/04/16 12:48 10/05/16 12:05 Acetaminophen (Tylenol Tab) 650 mg Q4H PRN PO PAIN LEVEL 1-5 10/04/16 13:00 Acetaminophen/ Hydrocodone Bitart ([place] (5/325)) 1 tab Q4H PRN PO PAIN LEVEL 6-10 10/04/16 13:00 10/05/16 14:39 Morphine Sulfate (morphine) 2 mg Q2H PRN IV BREAKTHROUGH PAIN 10/04/16 13:00 Ondansetron HCl (Zofran Inj) 4 mg Q6H PRN IV NAUSEA AND/OR VOMITING 10/04/16 13:00 LUNA KRAFT MD Oct 05, 2016 17:16
--- NOTE | 2016-10-05 18:13 | PN ---
Date/Time of Note Date/Time of Note DATE: 10/05/16 TIME: 18:11 Assessment/Plan VTE Prophylaxis VTE Prophylaxis Intervention: ambulation, SCD's VTE Confirmed-Overlap Tx Rcvd Pt Rcvd Overlap Therapy: Yes Lines/Catheters IV Catheter Type (from Nrsg): Peripheral IV Urinary Cath still in place: No Assessment/Plan Chief Complaint/Hosp Course POD #1 Problems: Assessment/Plan (1) Ok to advance diet slowly, (2) Ambulate, (3) Follow CBC Subjective 24 Hr Interval Summary Free Text/Dictation Some flatus, wilkerson out Exam/Review of Systems Vital Signs Vitals Vital Signs Date Time Temp Pulse Resp B/P Pulse Ox O2 Delivery O2 Flow Rate FiO2 10/05/16 07:28 98.2 84 16 113/55 96 10/04/16 17:05 Room Air 10/04/16 13:24 6.0 Intake and Output 10/04/16 10/04/16 10/05/16 15:00 23:00 07:00 Intake Total 1200 ml 470 ml 1860 ml Output Total 385 ml 270 ml 1250 ml Balance 815 ml 200 ml 610 ml Exam Gastrointestinal: soft Results Result Diagram: 10/05/16 0445 10/05/16 0445 Results 24 hrs Laboratory Tests Test 10/05/16 04:45 Anion Gap 15 Basophils # 0.0 Basophils % 0.0 Blood Urea Nitrogen 17 Calcium Level 8.0 L Carbon Dioxide Level 27 Chloride Level 101 Creatinine 0.55 Eosinophils # 0.0 Eosinophils % 0.1 Glucose Level 118 Hematocrit 24.5 L Hemoglobin 8.3 L Lymphocytes # 0.7 L Lymphocytes % 8.2 L Mean Corpuscular Hemoglobin 30.4 Mean Corpuscular Hemoglobin Concent 34.1 Mean Corpuscular Volume 89.1 Mean Platelet Volume 7.7 Monocytes # 1.0 H Monocytes % 12.2 H Neutrophils # 6.5 Neutrophils % 79.5 H Nucleated Red Blood Cells # 0.0 Nucleated Red Blood Cells % 0.0 Platelet Count 232 Potassium Level 4.5 Red Blood Count 2.75 L Red Cell Distribution Width 12.2 Sodium Level 138 White Blood Count 8.2 Medications Medications Current Medications Metoclopramide HCl (Reglan) 10 mg Q6 IV Last administered on 10/05/16t 12:05; Admin Dose 10 MG; Start 09/30/16 at 12:00 Hydromorphone HCl (Dilaudid) 0.2 mg Q2H PRN IV PAIN LEVEL 1-5; Start 10/04/16 at 12:30 Hydromorphone HCl (Dilaudid) 0.4 mg Q2H PRN IV PAIN LEVEL 6-10 Last administered on 10/04/16 16:19; Admin Dose 0.4 MG; Start 10/04/16 at 12:30 Diphenhydramine HCl (Benadryl) 25 mg Q4H PRN IV PRURITUS; Start 10/04/16 at 12: 30 Nalbuphine HCl (Nubain) 10 mg Q4H PRN IV PRURITUS; Start 10/04/16 at 12:30 Naloxone HCl 0.2 mg 0.2 mg Q2M PRN IV FOR RESP RATE 8 OR LESS; Start 10/04/16 at 12:30 Lactated Ringer's (Lr) 1,000 ml @ 125 mls/hr Q8H IV Last administered on 12:05; Admin Dose 125 MLS/HR; Start 10/04/16 at 12:48 Acetaminophen (Tylenol Tab) 650 mg Q4H PRN PO PAIN LEVEL 1-5; Start 10/04/16 at 13:00 Acetaminophen/ Hydrocodone Bitart ([place] (5/325)) 1 tab Q4H PRN PO PAIN LEVEL 6 -10 Last administered on 10/05/16 14:39; Admin Dose 1 TAB; Start 10/04/16 at 13 :00 Morphine Sulfate (morphine) 2 mg Q2H PRN IV BREAKTHROUGH PAIN; Start 10/04/16 at 13:00 Ondansetron HCl (Zofran Inj) 4 mg Q6H PRN IV NAUSEA AND/OR VOMITING; Start 08/10 at 13:00 KALEN NINA MD Oct 05, 2016 18:13
[2016-10-05 19:50] VITALS: BP 132/61; RESP 18
[2016-10-06] MEDS: LACTATED RINGER'S 1,000 ML IV SCH ×3 (04:48→20:48)
[2016-10-06] MEDS: HYDROCODONE/APAP (5/325) TAB PO PRN ×5 (04:52→23:53)
[2016-10-06] MEDS: METOCLOPRAMIDE 10 MG INJ IV SCH ×4 (05:01→23:27)
[2016-10-06 06:00] LABS: BASOPHILS % 0.3 % (0.0-2.0); EOSINOPHILS # 0.4 10^3/ul (0.0-0.5); EOSINOPHILS % 5.3 % (0.0-7.0); HEMATOCRIT 25.8 % (37.0-47.0); HEMOGLOBIN 9.1 g/dl (12.0-16.0); LYMPHOCYTES # 1.1 10^3/ul (0.8-2.9); LYMPHOCYTES % 16.2 % (15.0-51.0); MEAN CORPUSCULAR VOLUME 88.4 fl (82.0-101.0); MEAN PLATELET VOLUME 7.4 fl (7.4-10.4); MONOCYTES % 14.4 % (0.0-11.0); NEUTROPHIL # 4.4 10^3/ul (1.6-7.5); NEUTROPHILS % 63.8 % (39.0-77.0); PLATELET COUNT 290 10^3/UL (140-440); RED BLOOD COUNT 2.92 10^6/ul (4.20-5.40); RED CELL DISTRIBUTION WIDTH 12.1 % (11.5-14.5); UNCORRECTED WBC 6.9 10^3/ul (4.8-10.8); WHITE BLOOD COUNT 6.9 10^3/ul (4.8-10.8)
[2016-10-06 06:20] LABS: CONDITION 1
[2016-10-06 06:36] LABS: POTASSIUM 3.9 mmol/L (3.5-5.1)
[2016-10-06 06:38] LABS: CREATININE 0.65 mg/dl (0.44-1.00)
[2016-10-06 06:39] LABS: CALCIUM 8.3 mg/dl (8.4-10.2)
[2016-10-06 07:22] VITALS: BP 131/60; RESP 16
--- NOTE | 2016-10-06 14:17 | PN ---
Date/Time of Note Date/Time of Note DATE: 10/06/16 TIME: 14:16 Assessment/Plan VTE Prophylaxis VTE Prophylaxis Intervention: other Lines/Catheters [facility] Peripheral IV Urinary Cath still in place: No Assessment/Plan Chief Complaint/Hosp Course 1. 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 Intractable pain secondary to ovarian mass.paIN BETTER 3. History of uterine fibroids, status post hysterectomy at the age 48 for symptomatic fibroids. 4. History of cholecystectomy. 5 post anemia PLAN per dr pratt ck labs pt/ot Problems: Subjective 24 Hr Interval Summary ENT: no complaints Respiratory: no complaints Gastrointestinal: no complaints Exam/Review of Systems Vital Signs Vitals Vital Signs Date Time Temp Pulse Resp B/P Pulse Ox O2 Delivery O2 Flow Rate FiO2 10/06/16 07:22 98.4 67 16 131/60 96 10/04/16 17:05 Room Air 10/04/16 13:24 6.0 Intake and Output 10/05/16 10/05/16 10/06/16 15:00 23:00 07:00 Intake Total 1650 ml 400 ml Output Total 10 ml Balance 1640 ml 400 ml Exam Respiratory: clear to auscultation Cardiovascular: regular rate and rhythm Gastrointestinal: non-tender, soft Musculoskeletal: nl extremities to inspection Extremities: normal pulses Results Result Diagram: 10/06/16 0433 10/06/16 0433 Results 24 hrs Laboratory Tests Test 10/06/16 04:33 Anion Gap 14 Basophils # 0.0 Basophils % 0.3 Blood Morphology Comment Blood Urea Nitrogen 11 Calcium Level 8.3 L Carbon Dioxide Level 29 Chloride Level 103 Creatinine 0.65 Eosinophils # 0.4 Eosinophils % 5.3 Glucose Level 84 Hematocrit 25.8 L Hemoglobin 9.1 L Lymphocytes # 1.1 Lymphocytes % 16.2 Mean Corpuscular Hemoglobin 31.0 Mean Corpuscular Hemoglobin Concent 35.0 Mean Corpuscular Volume 88.4 Mean Platelet Volume 7.4 Monocytes # 1.0 H Monocytes % 14.4 H Neutrophils # 4.4 Neutrophils % 63.8 Nucleated Red Blood Cells # 0.0 Nucleated Red Blood Cells % 0.0 Platelet Count 290 # Potassium Level 3.9 Red Blood Count 2.92 L Red Cell Distribution Width 12.1 Sodium Level 142 White Blood Count 6.9 Medications Medications Current Medications Metoclopramide HCl (Reglan) 10 mg Q6 IV Last administered on 10/06/16 11:55; Admin Dose 10 MG; Start 09/30/16 at 12:00 Hydromorphone HCl (Dilaudid) 0.2 mg Q2H PRN IV PAIN LEVEL 1-5; Start 10/04/16 at 12:30 Hydromorphone HCl (Dilaudid) 0.4 mg Q2H PRN IV PAIN LEVEL 6-10 Last administered on 10/04/16 16:19; Admin Dose 0.4 MG; Start 10/04/16 at 12:30 Diphenhydramine HCl (Benadryl) 25 mg Q4H PRN IV PRURITUS; Start 10/04/16 at 12: 30 Nalbuphine HCl (Nubain) 10 mg Q4H PRN IV PRURITUS; Start 10/04/16 at 12:30 Naloxone HCl 0.2 mg 0.2 mg Q2M PRN IV FOR RESP RATE 8 OR LESS; Start 10/04/16 at 12:30 Lactated Ringer's (Lr) 1,000 ml @ 125 mls/hr Q8H IV Last administered on 21:30; Admin Dose 125 MLS/HR; Start 10/04/16 at 12:48 Acetaminophen (Tylenol Tab) 650 mg Q4H PRN PO PAIN LEVEL 1-5; Start 10/04/16 at 13:00 Acetaminophen/ Hydrocodone Bitart ([place] (5/325)) 1 tab Q4H PRN PO PAIN LEVEL 6 -10 Last administered on 10/06/16 09:34; Admin Dose 1 TAB; Start 10/04/16 at 13 :00 Morphine Sulfate (morphine) 2 mg Q2H PRN IV BREAKTHROUGH PAIN Last administered on 10/06/16 07:14; Admin Dose 2 MG; Start 10/04/16 at 13:00 Ondansetron HCl (Zofran Inj) 4 mg Q6H PRN IV NAUSEA AND/OR VOMITING; Start 08/10 at 13:00 EVELYN GARCIA MD Oct 06, 2016 14:16
--- NOTE | 2016-10-06 15:53 | CONS ---
Date/Time of Note Date/Time of Note DATE: 10/06/16 TIME: 15:49 Assessment/Plan Assessment/Plan Additional Assessment/Plan pod two open BSO pt co of some pain and difficulty walking LADARIUS removed plan DC home fritz Consultation Date/Type/Reason Admit Date/Time Sep 30, 2016 at 01:37 Initial Consult Date 09/30/16 Type of Consultation: Anesthesia Referring Provider: PATRICIA ESCOBEDO DO Exam/Review of Systems Vital Signs Vitals Vital Signs Date Time Temp Pulse Resp B/P Pulse Ox O2 Delivery O2 Flow Rate FiO2 10/06/16 07:22 98.4 67 16 131/60 96 10/04/16 17:05 Room Air 10/04/16 13:24 6.0 Intake and Output 10/05/16 10/05/16 10/06/16 15:00 23:00 07:00 Intake Total 1650 ml 400 ml Output Total 10 ml Balance 1640 ml 400 ml Exam Gastrointestinal: bowel sounds, other (wound healind well), surgical scars Results Result Diagram: 10/06/16 0433 10/06/16 0433 Results 24 hrs Laboratory Tests Test 10/06/16 04:33 Anion Gap 14 Basophils # 0.0 Basophils % 0.3 Blood Morphology Comment Blood Urea Nitrogen 11 Calcium Level 8.3 L Carbon Dioxide Level 29 Chloride Level 103 Creatinine 0.65 Eosinophils # 0.4 Eosinophils % 5.3 Glucose Level 84 Hematocrit 25.8 L Hemoglobin 9.1 L Lymphocytes # 1.1 Lymphocytes % 16.2 Mean Corpuscular Hemoglobin 31.0 Mean Corpuscular Hemoglobin Concent 35.0 Mean Corpuscular Volume 88.4 Mean Platelet Volume 7.4 Monocytes # 1.0 H Monocytes % 14.4 H Neutrophils # 4.4 Neutrophils % 63.8 Nucleated Red Blood Cells # 0.0 Nucleated Red Blood Cells % 0.0 Platelet Count 290 # Potassium Level 3.9 Red Blood Count 2.92 L Red Cell Distribution Width 12.1 Sodium Level 142 White Blood Count 6.9 Medications Medications Current Medications Metoclopramide HCl (Reglan) 10 mg Q6 IV Last administered on 10/06/16t 11:55; Admin Dose 10 MG; Start 09/30/16 at 12:00 Hydromorphone HCl (Dilaudid) 0.2 mg Q2H PRN IV PAIN LEVEL 1-5; Start 10/04/16 at 12:30 Hydromorphone HCl (Dilaudid) 0.4 mg Q2H PRN IV PAIN LEVEL 6-10 Last administered on 10/04/16 16:19; Admin Dose 0.4 MG; Start 10/04/16 at 12:30 Diphenhydramine HCl (Benadryl) 25 mg Q4H PRN IV PRURITUS; Start 10/04/16 at 12: 30 Nalbuphine HCl (Nubain) 10 mg Q4H PRN IV PRURITUS; Start 10/04/16 at 12:30 Naloxone HCl 0.2 mg 0.2 mg Q2M PRN IV FOR RESP RATE 8 OR LESS; Start 10/04/16 at 12:30 Lactated Ringer's (Lr) 1,000 ml @ 125 mls/hr Q8H IV Last administered on 21:30; Admin Dose 125 MLS/HR; Start 10/04/16 at 12:48 Acetaminophen (Tylenol Tab) 650 mg Q4H PRN PO PAIN LEVEL 1-5; Start 10/04/16 at 13:00 Acetaminophen/ Hydrocodone Bitart ([place] (5/325)) 1 tab Q4H PRN PO PAIN LEVEL 6 -10 Last administered on 10/06/16 15:31; Admin Dose 1 TAB; Start 10/04/16 at 13 :00 Morphine Sulfate (morphine) 2 mg Q2H PRN IV BREAKTHROUGH PAIN Last administered on 10/06/16 07:14; Admin Dose 2 MG; Start 10/04/16 at 13:00 Ondansetron HCl (Zofran Inj) 4 mg Q6H PRN IV NAUSEA AND/OR VOMITING; Start 08/10 at 13:00 BERTA MERCADO MD Oct 06, 2016 15:52
[2016-10-06 20:46] VITALS: BP 131/64; PULSE 84; RESP 18
[2016-10-07] MEDS: LACTATED RINGER'S 1,000 ML IV SCH ×2 (04:48→12:35)
[2016-10-07] MEDS: HYDROCODONE/APAP (5/325) TAB PO PRN ×2 (06:30→10:48)
[2016-10-07] MEDS: METOCLOPRAMIDE 10 MG INJ IV SCH ×2 (06:30→12:00)
[2016-10-07 07:00] VITALS: BP 126/61; RESP 20
--- NOTE | 2016-10-07 12:30 | CONS ---
Date/Time of Note Date/Time of Note DATE: 10/07/16 TIME: 12:30 Assessment/Plan Assessment/Plan Chief Complaint/Hosp Course LLQ pain Problems: Additional Assessment/Plan POD#3 s/p Dx L/S converted to exploratory laparotomy with radical resection of 15cm pelvic mass with torsion of L ovary, BSO, appendectomy and lysis of adhesions ->Pt progessing towards postop goals. Awaiting flatus. Recommend ambulation at least TID today ->Pt HD stable w/asymptomatic anemia. 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 Plan d/w pt. Questions answered to her satisfaction. Consultation Date/Type/Reason Admit Date/Time Sep 30, 2016 at 01:37 Initial Consult Date 09/30/16 Type of Consultation: Gynecology Reason for Consultation Post-op following Referring Provider: PATRICIA ESCOBEDO DO 24 HR Interval Summary Free Text/Dictation POD#3 Pt doing well. Ambulating, tolerating POs w/o N/V, voiding spontaneously and pain well c/w PO meds. Pt denies having yet passed flatus. Exam/Review of Systems Vital Signs Vitals Vital Signs Date Time Temp Pulse Resp B/P Pulse Ox O2 Delivery O2 Flow Rate FiO2 10/07/16 07:00 97.8 79 20 126/61 96 10/06/16 20:46 Room Air 10/04/16 13:24 6.0 Intake and Output 10/06/16 10/06/16 10/07/16 15:00 23:00 07:00 Intake Total 1000 ml 900 ml Balance 1000 ml 900 ml Exam Constitutional: alert, oriented, No distress Neck: supple Respiratory: clear to auscultation Cardiovascular: regular rate and rhythm Gastrointestinal: soft, surgical scars (midline vertical incision c/d/i with flex. infraumbilical incision c/d/i with flex), tender (min TTP), No distended Extremities: No calf tenderness, No edema Results Result Diagram: 10/06/1643210/06/16432 Medications Medications Current Medications Metoclopramide HCl (Reglan) 10 mg Q6 IV Last administered on 10/07/16t 06:30; Admin Dose 10 MG; Start 09/30/16 at 12:00 Hydromorphone HCl (Dilaudid) 0.2 mg Q2H PRN IV PAIN LEVEL 1-5; Start 10/04/16 at 12:30 Hydromorphone HCl (Dilaudid) 0.4 mg Q2H PRN IV PAIN LEVEL 6-10 Last administered on 10/04/16 16:19; Admin Dose 0.4 MG; Start 10/04/16 at 12:30 Diphenhydramine HCl (Benadryl) 25 mg Q4H PRN IV PRURITUS; Start 10/04/16 at 12: 30 Nalbuphine HCl (Nubain) 10 mg Q4H PRN IV PRURITUS; Start 10/04/16 at 12:30 Naloxone HCl 0.2 mg 0.2 mg Q2M PRN IV FOR RESP RATE 8 OR LESS; Start 10/04/16 at 12:30 Lactated Ringer's (Lr) 1,000 ml @ 125 mls/hr Q8H IV Last administered on 20:48; Admin Dose 125 MLS/HR; Start 10/04/16 at 12:48 Acetaminophen (Tylenol Tab) 650 mg Q4H PRN PO PAIN LEVEL 1-5; Start 10/04/16 at 13:00 Acetaminophen/ Hydrocodone Bitart ([place] (5/325)) 1 tab Q4H PRN PO PAIN LEVEL 6 -10 Last administered on 10/07/16 10:48; Admin Dose 1 TAB; Start 10/04/16 at 13 :00 Morphine Sulfate (morphine) 2 mg Q2H PRN IV BREAKTHROUGH PAIN Last administered on 10/06/16 07:14; Admin Dose 2 MG; Start 10/04/16 at 13:00 Ondansetron HCl (Zofran Inj) 4 mg Q6H PRN IV NAUSEA AND/OR VOMITING; Start 08/10 at 13:00 JANINA GILLIS MD Oct 07, 2016 12:30
--- NOTE | 2016-10-09 23:07 | QN ---
Documentation Comment [id number] EVELYN GARCIA MD Oct 09, 2016 23:06
--- NOTE | 2016-10-10 11:59 | DS ---
DATE OF ADMISSION: 09/30/2016 DATE OF DISCHARGE: 10/07/2016 HOSPITAL COURSE: The patient was admitted with the diagnosis of abdominal pain. Noted to have a co mplex large cystic lesion. The patient was seen by Dr. Justa Causey. Their recommendation to get oncologist to see this patient. The patient was seen by Dr. Hdz. His impression and recommendations followed. The patient underwent laparoscopy, exploratory laparotomy, radical di ssection of the pelvic mass, bilateral salpingo-oophorectomy, appendectomy, lysis of adhesions. Pos top, the patient was stable and cleared by the customer service consultant to be discharged home. DISCHARGE DIAGNOSES: 1. The patient had a pelvic mass, status post exploratory laparotomy with radical dissection of the pelvis mass with torsion of the left ovary, bilateral salpingo-oophorectomy, appendectomy, lysis of adhesions. 2. Anemia. The patient was cleared by the customer service consultant and by Dr. Boone. The patient to follow up with Dr. Boone as an outpatient. 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 DISCHARGE MEDICATIONS/INSTRUCTIONS: Given by Dr. Boone. CONDITION: The patient is stable at the time of discharge. Dictated By: EVELYN GARCIA MD BS/NTS Conf#: [id number] DID#: [id number]
== END 2016-10-07 15:15 | disposition home or self-care (01) | DRG 743 ==
LOC: E/R 20:58 → MS1 09-30 01:37
PROVIDERS: ADMIT Internal Medicine Nephrology; ATTEND Internal Medicine Nephrology
PROC: 0UT70ZZ Resection of Bilateral Fallopian Tubes, Open Approach (ICD-10-PCS; principal; 2016-09-30)
PROC: 0UT20ZZ Resection of Bilateral Ovaries, Open Approach (ICD-10-PCS; 2016-09-30)
PROC: 0DTJ0ZZ Resection of Appendix, Open Approach (ICD-10-PCS; 2016-09-30)
PROC: 0UJ34ZZ Inspection of Ovary, Percutaneous Endoscopic Approach (ICD-10-PCS; 2016-09-30)
DX: N83.292 Other ovarian cyst, left side (principal); N83.512 Torsion of left ovary and ovarian pedicle; D27.0 Benign neoplasm of right ovary; N83.8 Other noninflammatory disorders of ovary, fallopian tube and broad ligament; D64.9 Anemia, unspecified; Z90.710 Acquired absence of both cervix and uterus
CPT/HCPCS: 36415; 71020; 74176; 76830; 76856; 80048; 80053; 81001; 81003; 83690; 85025; 85610; 85730; 86301; 86304; 86850; 86900; 86901; 86920; 87086; 88304; 88305; 93005; 96374; 96375; 96376; J0690; J1100; J1170; J1885; J2060; J2250; J2270; J2274; J2405; J2765; J3480; J7030; J7120

== ENCOUNTER 2016-11-17 13:02 | Emergency (ER) | payer OTHER ==
[~2016-11-17] VITALS: Ht 160 cm; Wt 60.0 kg
[2016-11-17 13:15] VITALS: Ht 160 cm; Wt 60.0 kg
[2016-11-17] MEDS ORDERED: CETI10CA PO (14:21)
[2016-11-17] MEDS ORDERED: KENC1 TOP (14:21)
[2016-11-17] MEDS ORDERED: PRED20TA PO (14:21)
--- NOTE | 2016-11-17 14:23 | ERD ---
ER Documentation Chief Complaint Date/Time DATE: 11/17/16 TIME: 14:22 Chief Complaint RASH ON CHEST , FACE AND B/L ARMS HPI This 51-year-old female complains of an itchy rash on her chest and flexor surfaces of her elbows for last week. She denies any new foods or new medications. Denies any shortness of breath, fevers or recent illnesses. ROS All systems reviewed and are negative except as per history of present illness. Medications Home Meds Active Scripts Prednisone* (Prednisone*) 20 Mg Tab, 40 MG PO DAILY for 5 Days, TAB Prov:DANNA CABEZAS MD 11/17/16 Cetirizine Hcl* (Zyrtec*) 10 Mg Capsule, 10 MG PO DAILY, #15 TAB.CHEW Prov:DANNA CABEZAS MD 11/17/16 Triamcinolone Acetonide (Triamcinolone Acetonide) 0.1% - 15 Gm Cream.gm., 1 APPLIC TOP BID for 7 Days, #1 TUB Prov:DANNA CABEZAS MD 11/17/16 Allergies Allergies: Coded Allergies: No Known Allergy (Unverified , 09/29/16) PMhx/Soc History of Surgery: Yes (hysterectomy,chlecystectomy 2 yrs ago,neck surgery a year ago,CSX3) Anesthesia Reaction: No Hx Neurological Disorder: No Hx Respiratory Disorders: No Hx Cardiac Disorders: No Hx Psychiatric Problems: No Hx Miscellaneous Medical Probl: No Hx Alcohol Use: No Hx Substance Use: No Hx Tobacco Use: No Physical Exam Vitals Vital Signs Date Time Temp Pulse Resp B/P Pulse Ox O2 Delivery O2 Flow Rate FiO2 11/17/16 13:15 98.2 78 18 131/65 98 Physical Exam Const: [] Alert, [id number] per Head: Atraumatic Eyes: Normal Conjunctiva ENT: Normal External Ears, Nose and Mouth. Neck: Full range of motion..~ No meningismus. Resp: Clear to auscultation bilaterally Cardio: Regular rate and rhythm, no murmurs Abd: Soft, non tender, non distended. Normal bowel sounds Skin: No petechiae or rashes. There is a maculopapular rash on the chest and flexor surfaces of the elbows. There is some excoriations. There is no warmth, erythema, vesicles. Back: No midline or flank tenderness Ext: No cyanosis, or edema Neur: Awake and alert Psych: Normal Mood and Affect Procedures/MDM Patient presents with a dermatitis of uncertain etiology. He has an eczema type appearance. It may be a viral exanthem or unspecified allergic reaction. She will treated with triamcinolone, Zyrtec and a short course prednisone. Patient is advised to return for fevers, shortness breath, new worsening symptoms with primary care doctor . The patient was stable with no new complaints during the ER course. Clinically, there is no current evidence to suggest meningitis, sepsis, acute abdomen, pneumonia, acute coronary syndrome, pulmonary embolism, or any other emergent condition appearing to require further evaluation or hospitalization. The patient should certainly return for any new or worsening symptoms per the aftercare instructions. They should otherwise follow-up with her primary care doctor for reevaluation this week. Departure Diagnosis: Primary Impression: Rash Condition: Stable Patient Instructions: Dermatitis, Non-Specific Additional Instructions: Cheque otro vez con blair doctor primario en el proximo mcdaniel or regresa para mas o nueva simptomas. DANNA CABEZAS MD Nov 17, 2016 14:23
== END 2016-11-17 14:30 | disposition home or self-care (01) ==
LOC: FTE 13:02
DX: R21 Rash and other nonspecific skin eruption (principal)
CPT/HCPCS: 99284